=== PATIENT | female | born 1960 | race Caucasian/White ===

== ENCOUNTER 2016-06-29 21:11 | Emergency (ER) | payer OTHER ==
[~2016-06-29] VITALS: Ht 154.9 cm; Wt 93.0 kg
[~2016-06-29 21:11] MED LIST: ATOR20TA65 PO; GLIP10TA95 PO; MTF1000T PO
[2016-06-29 21:24] VITALS: Ht 154.9 cm; Wt 93.0 kg
[2016-06-29] MEDS ORDERED: KETOROLAC 30 MG INJ IV STA (22:56)
[2016-06-29 23:09] LABS: ADD SCAN DIFF NO
[2016-06-29] MEDS ORDERED: ENAL20TA PO (23:09)
[2016-06-29 23:11] LABS: BASOPHILS % 0.4 % (0.0-2.0); EOSINOPHILS # 0.1 10^3/ul (0.0-0.5); EOSINOPHILS % 1.5 % (0.0-7.0); HEMATOCRIT 40.2 % (37.0-47.0); HEMOGLOBIN 13.4 g/dl (12.0-16.0); LYMPHOCYTES # 3.3 10^3/ul (0.8-2.9); LYMPHOCYTES % 40.6 % (15.0-51.0); MEAN CORPUSCULAR HEMOGLOBIN 29.5 pg (29.0-33.0); MEAN CORPUSCULAR HGB CONC 33.3 g/dl (32.0-37.0); MEAN CORPUSCULAR VOLUME 88.4 fl (82.0-101.0); MEAN PLATELET VOLUME 11.1 fl (7.4-10.4); MONOCYTE # 0.5 10^3/ul (0.3-0.9); MONOCYTES % 6.5 % (0.0-11.0); NEUTROPHIL # 4.2 10^3/ul (1.6-7.5); NEUTROPHILS % 50.8 % (39.0-77.0); PLATELET COUNT 224 10^3/UL (140-415); RED BLOOD COUNT 4.55 10^6/ul (4.20-5.40); RED CELL DISTRIBUTION WIDTH 12.5 % (11.5-14.5); WHITE BLOOD COUNT 8.2 10^3/ul (4.8-10.8)
[2016-06-29 23:19] LABS: ALBUMIN 4.2 g/dl (3.3-4.9); POTASSIUM 4.1 mmol/L (3.5-5.1)
[2016-06-29 23:21] LABS: CREATININE 0.62 mg/dl (0.44-1.00)
[2016-06-29 23:22] LABS: ALBUMIN/GLOBULIN RATIO 1.2; BILIRUBIN,INDIRECT 0.3 mg/dl (0-1.1); BILIRUBIN,TOTAL 0.3 mg/dl (0.2-1.3); CALCIUM 9.7 mg/dl (8.4-10.2); TOTAL PROTEIN 7.7 g/dl (6.1-8.1)
--- NOTE | 2016-06-29 23:32 | RADRPT ---
PROCEDURE: US right upper quadrant CLINICAL INDICATION: Abdominal pain TECHNIQUE: Multiple real-time images were acquired of the patient's right upper abdomen utilizing a high resolution transducer. COMPARISON: CT abdomen and pelvis 06/27/2015 FINDINGS: Liver: Increased in size with normal echogenicity and contour no evidence of mass or ductal dilatat ion. Normal directional blood flow is seen within the patent main portal vein. The maximum dimension estimated at 20.6 cm . Gallbladder: Normal. No sonographic Mariano's sign is reported. Common bile duct: Normal; 2.2 mm. There is no evidence for choledocholithiasis. Right Kidney: Normal; maximum length measured at approximately 9.9 cm. Pancreas: Visualized portions are normal. The tail is partially obscured by bowel gas. RPTAT:HJJR IMPRESSION: 1. Normal gallbladder. 2. Hepatomegaly. Physician Debi Date Time Electronically viewed and signed by Physician Debi on 06/29/2016 23:32 /
[2016-06-30 01:02] LABS: URINE BLOOD (Dip) POC Negative (NEGATIVE)
[2016-06-30 01:05] LABS: URINE BLOOD (Dip) POC Negative (NEGATIVE)
[2016-06-30] MEDS ORDERED: IBUP-1542 PO (01:27)
[2016-06-30 01:40] VITALS: BP 160/89; PULSE 70; RESP 18
--- NOTE | 2016-06-30 04:40 | ERA ---
ER Documentation Chief Complaint Date/Time DATE: 06/30/16 Chief Complaint Upper abd pain for a week HPI The patient is a 56-year-old female, presenting to the ER because of upper abdominal pain intermittently for 1 week, 08/08, no aggravating or relieving factor. She has similar symptoms previously. She denies fever, chills, neck pain, chest pain, nausea, vomiting, dysuria, diarrhea. She does not smoke or drink Past medical history: Hypertension, diabetes mellitus, dyslipidemia Past surgical history: Appendectomy ROS All systems reviewed and are negative except as per history of present illness. Medications Home Meds Active Scripts Ibuprofen* (Motrin*) 600 Mg Tab, 600 MG PO Q6H Y for PAIN AND OR ELEVATED TEMP, #30 TAB Prov:DONNELL MAYNARD MD 06/30/16 Reported Medications Enalapril Maleate* (Enalapril Maleate*) 20 Mg Tablet, 20 MG PO DAILY, TAB 06/29/16 Atorvastatin Calcium (Atorvastatin Calcium) 20 Mg Tablet, 20 MG PO DAILY 06/27/15 Metformin* (Glucophage*) 1,000 Mg Tablet, 1000 MG PO BID, TAB 05/17/14 Glipizide* (Glucotrol*) 10 Mg Tablet, 10 MG PO BID 03/12/13 Allergies Allergies: Coded Allergies: azithromycin (Verified Allergy, Unknown, DRY MOUTH,HARD TO SWALLOW, ) sulfamethoxazole (Verified Allergy, Unknown, HARD TO SWALLOW, DRY MOUTH, ) trimethoprim (Verified Allergy, Unknown, HARD TO SWALLOW, DRY MOUTH, ) PMhx/Soc History of Surgery: Yes (HYSTERECTOMY) Anesthesia Reaction: No Hx Neurological Disorder: No Hx Respiratory Disorders: No Hx Cardiac Disorders: Yes (HTN,HIGH CHOLESTEROL) Hx Psychiatric Problems: No Hx Miscellaneous Medical Probl: Yes (DM) Hx Alcohol Use: No Hx Substance Use: No Hx Tobacco Use: No Smoking Status: Never smoker Physical Exam Vitals Vital Signs Date Time Temp Pulse Resp B/P Pulse Ox O2 Delivery O2 Flow Rate FiO2 06/30/16 01:40 70 18 160/89 97 Room Air 06/30/16 01:09 67 20 160/89 100 06/29/16 21:24 98.4 66 16 164/75 99 Physical Exam Const: No acute distress. Head: Atraumatic. Eyes: Normal Conjunctiva. ENT: Normal External Ears, Nose and Mouth. Neck: Full range of motion. No meningismus. Resp: Clear to auscultation bilaterally. Cardio: Regular rate and rhythm, no murmurs. Abd: Soft, non distended, normal bowel sounds, mild epigastric and right upper quadrant tenderness, no rigidity, rebound, CVA tenderness Skin: No petechiae or rashes. Back: No midline or flank tenderness. Ext: No cyanosis, or edema. Neur: Awake and alert. No focal deficit Psych: Normal Mood and Affect. Result Diagram: 06/29/16229906/29/162299 Results 24 hrs Laboratory Tests Test 06/29/16 23:00 06/30/16 01:01 06/30/16 01:04 White Blood Count 8.210^3/ul Red Blood Count 4.5510^6/ul Hemoglobin 13.4g/dl Hematocrit 40.2% Mean Corpuscular Volume 88.4fl Mean Corpuscular Hemoglobin 29.5pg Mean Corpuscular Hemoglobin Concent 33.3g/dl Red Cell Distribution Width 12.5% Platelet Count 05099^3/UL Mean Platelet Volume 11.1fl Neutrophils % 50.8% Lymphocytes % 40.6% Monocytes % 6.5% Eosinophils % 1.5% Basophils % 0.4% Nucleated Red Blood Cells % 0.0/100WBC Neutrophils # 4.210^3/ul Lymphocytes # 3.310^3/ul Monocytes # 0.510^3/ul Eosinophils # 0.110^3/ul Basophils # 0.010^3/ul Nucleated Red Blood Cells # 0.010^3/ul Sodium Level 136mmol/L Potassium Level 4.1mmol/L Chloride Level 98mmol/L Carbon Dioxide Level 31mmol/L Anion Gap 11 Blood Urea Nitrogen 16mg/dl Creatinine 0.62mg/dl Glucose Level 346mg/dl Calcium Level 9.7mg/dl Total Bilirubin 0.3mg/dl Direct Bilirubin 0.00mg/dl Indirect Bilirubin 0.3mg/dl Aspartate Amino Transf (AST/SGOT) 26IU/L Alanine Aminotransferase (ALT/SGPT) 34IU/L Alkaline Phosphatase 156IU/L Total Protein 7.7g/dl Albumin 4.2g/dl Globulin 3.50g/dl Albumin/Globulin Ratio 1.20 Lipase 42U/L Bedside Urine pH (LAB) 6.0 6.0 Bedside Urine Protein (LAB) Negative Negative Bedside Urine Glucose (UA) 0.50% 0.50% Bedside Urine Ketones (LAB) Negative Negative Bedside Urine Blood Negative Negative Bedside Urine Nitrite (LAB) Negative Negative Bedside Urine Leukocyte Esterase (L Negative Negative Current Medications Medications (Trade) Dose Ordered Sig/Dilip Route PRN Reason Start Time Stop Time Status Last Admin Dose Admin Ketorolac Tromethamine (Toradol) 30 mg ONCE STAT IV 06/29/16 22:56 06/29/16 22:58 DC 06/29/16 23:34 Procedures/[place] [id number] Radiology Main Line: [phone] DIAGNOSTIC IMAGING REPORT Patient: SILVIA BUNDY : 1960 Age: 56 Sex: F MR #: [id number] DOS: 06/29/16 2256 Ordering MD: DONNELL MAYNARD MD Location: E/R Room/Bed: PROCEDURE: US right upper quadrant CLINICAL INDICATION: Abdominal pain TECHNIQUE: Multiple real-time images were acquired of the patient's right upper abdomen utilizing a high resolution transducer. COMPARISON: CT abdomen and pelvis 06/27/2015 FINDINGS: Liver: Increased in size with normal echogenicity and contour no evidence of mass or ductal dilatation. Normal directional blood flow is seen within the patent main portal vein. The maximum dimension estimated at 20.6 cm . Gallbladder: Normal. No sonographic Mariano's sign is reported. Common bile duct: Normal; 2.2 mm. There is no evidence for choledocholithiasis. Right Kidney: Normal; maximum length measured at approximately 9.9 cm. Pancreas: Visualized portions are normal. The tail is partially obscured by bowel gas. RPTAT:HJJR IMPRESSION: 1. Normal gallbladder. 2. Hepatomegaly. Physician Debi Date Time Electronically viewed and signed by Physician Debi on 06/29/2016 23:32 JR/ CC: DONNELL MAYNARD MD MEDICAL MAKING DECISION: The patient is a 56-year-old female, presenting with acute abdominal pain of unclear etiology. She was treated with Toradol 30 mg IV for pain with good response. The differential diagnoses considered include but are not limited to cholelithiasis, cholecystitis, cystitis, pancreatitis, hepatitis, gastritis, peptic ulcer disease, gastric ulcer, diverticulitis, cholangitis, choledocholithiasis, partial small bowel obstruction. Departure Diagnosis: Primary Impression: Abdominal pain Condition: Good Patient Instructions: Abdominal Pain Referrals: DOCTOR,NOT ON STAFF (PCP) Additional Instructions: Call your primary care doctor TOMORROW for an appointment during the next 1-2 days.See the doctor sooner or return here if your condition worsens before your appointment time. She was discharged with DONNELL Damon MD Jun 30, 2016 04:40
== END 2016-06-30 01:42 | disposition home or self-care (01) ==
LOC: E/R 21:11
DX: R10.10 Upper abdominal pain, unspecified (principal); I10 Essential (primary) hypertension; E11.9 Type 2 diabetes mellitus without complications; Z79.84 Long term (current) use of oral hypoglycemic drugs
CPT/HCPCS: 36415; 76705; 80053; 81003; 83690; 85025; 96372; J1885; Z7502

== ENCOUNTER 2018-03-10 13:17 | Emergency (ER) | END 2018-03-10 14:51 | disposition home or self-care (01) ==

== ENCOUNTER 2018-05-23 03:20 | Inpatient (IN) | payer OTHER ==
[2018-05-23] VITALS (8 sets, daily range): BP systolic 102–139; BP diastolic 69–88; PULSE 78–103; RESP 17–20; Ht 154.9 cm; Wt 74.1 kg
[~2018-05-23] VITALS: Ht 154.9 cm; Wt 74.1 kg
[~2018-05-23 03:20] MED LIST changes: +BENZ-6 PO; +ENAL20TA PO; +GLIP10TA3 PO; -GLIP10TA95 PO; +IBUP-1542 PO; +LEVO500T48 PO
[2018-05-23] MEDS ORDERED: ASPIRIN 81 MG TAB PO STA (03:43)
[2018-05-23] MEDS ORDERED: NITROGLYCERIN 2% 1 GM OINT PKT TD STA (03:43)
[2018-05-23] MEDS ORDERED: FUROSEMIDE 40 MG INJ IV STA (03:43)
--- NOTE | 2018-05-23 04:06 | ERD ---
ER Documentation Chief Complaint Chief Complaint CHEST PAIN WITH SOB AND COUGH X3DAYS HPI During the patient's encounter translation services were utilized Language: Turkish Source: Family 57-year-old female who presents to the emergency room complaining of several days of shortness of breath, PND, orthopnea, lower extremity swelling. Occasional chest pain here and there. None currently. She denies any fevers chills or cough. The patient has been taking diuretics. She has been following up in the clinics without successful improvement of her symptoms. ROS All systems reviewed and are negative except as per history of present illness. Medications Home Meds Active Scripts Benzonatate* (Tessalon Perle*) 100 Mg Capsule, 100 MG PO Q8H PRN for COUGH, #30 CAP Prov:MARTINA GTZ PA-C 03/10/18 Levofloxacin* (Levaquin*) 500 Mg Tablet, 500 MG PO DAILY for 7 Days, TAB Prov:MARTINA GTZ PA-C 03/10/18 Ibuprofen* (Motrin*) 600 Mg Tab, 600 MG PO Q6H PRN for PAIN AND OR ELEVATED TEMP, #30 TAB Prov:DONNELL MAYNARD MD 06/30/16 Reported Medications Ergocalciferol (Vitamin D2) (VITAMIN D2) 50,000 Unit Capsule, 25901 UNIT PO QSUN, CAP 05/23/18 Lisinopril* (Lisinopril*) 10 Mg Tablet, 10 MG PO BID, #30 TAB 05/23/18 Furosemide* (Furosemide*) 20 Mg Tablet, 20 MG PO BID, #30 TAB 05/23/18 Enalapril Maleate* (Enalapril Maleate*) 20 Mg Tablet, 20 MG PO DAILY, TAB 06/29/16 Atorvastatin Calcium (Atorvastatin Calcium) 20 Mg Tablet, 20 MG PO DAILY 06/27/15 Metformin* (Glucophage*) 1,000 Mg Tablet, 1000 MG PO BID, TAB 05/17/14 Glipizide* (Glucotrol*) 10 Mg Tablet, 10 MG PO BID 03/12/13 Allergies Allergies: Coded Allergies: azithromycin (Unverified Allergy, Unknown, DRY MOUTH,HARD TO SWALLOW, 05/23/18) sulfamethoxazole (Unverified Allergy, Unknown, HARD TO SWALLOW, DRY MOUTH, 05/23/18) trimethoprim (Unverified Allergy, Unknown, HARD TO SWALLOW, DRY MOUTH, 05/23/18) PMhx/Soc History of Surgery: Yes (HYSTERECTOMY) Anesthesia Reaction: No Hx Neurological Disorder: No Hx Respiratory Disorders: No Hx Cardiac Disorders: Yes (HTN,HIGH CHOLESTEROL) Hx Psychiatric Problems: No Hx Miscellaneous Medical Probl: Yes (DM) Hx Alcohol Use: No Hx Substance Use: No Hx Tobacco Use: No FmHx Family History: No diabetes Physical Exam Vitals Vital Signs Date Temp Pulse Resp B/P (MAP) Pulse Ox O2 O2 Flow FiO2 Time Delivery Rate 05/23/18 87 18 115/79 100 Room Air 05:31 (91) 05/23/18 98.5 101 19 134/85 95 03:26 (101) Physical Exam General: Well developed, well nourished, no acute distress Head: Normocephalic, atraumatic. Eyes: Pupils equally reactive, EOM intact ENT: Moist mucous membranes Neck: Supple, no lymphadenopathy Respiratory: Scant rales at the bases bilaterally Cardiovascular: RRR, no murmurs, rubs, or gallops Abdominal: Soft, non-tender, non-distended, no peritoneal signs : Deferred MSK: Bilateral lower extremity pitting edema, no unilateral swelling, 5/5 strength Neurologic: Alert and oriented, moving all extremities, normal speech, no focal weakness, no cerebellar signs Skin: No rash Psych: Normal mood Result Diagram: 05/23/185 05/23/18 0345 Results 24 hrs Laboratory Tests Test 05/23/18 03:45 White Blood Count 6.3 10^3/ul Red Blood Count 4.42 10^6/ul Hemoglobin 12.2 g/dl Hematocrit 38.5 % Mean Corpuscular Volume 87.1 fl Mean Corpuscular Hemoglobin 27.6 pg Mean Corpuscular Hemoglobin Concent 31.7 g/dl Red Cell Distribution Width 14.2 % Platelet Count 192 10^3/UL Mean Platelet Volume 10.9 fl Immature Granulocytes % 0.300 % Neutrophils % 59.8 % Lymphocytes % 30.6 % Monocytes % 7.4 % Eosinophils % 1.3 % Basophils % 0.6 % Nucleated Red Blood Cells % 0.0 /100WBC Immature Granulocytes # 0.020 10^3/ul Neutrophils # 3.8 10^3/ul Lymphocytes # 1.9 10^3/ul Monocytes # 0.5 10^3/ul Eosinophils # 0.1 10^3/ul Basophils # 0.0 10^3/ul Nucleated Red Blood Cells # 0.0 10^3/ul Sodium Level 142 mmol/L Potassium Level 3.9 mmol/L Chloride Level 109 mmol/L Carbon Dioxide Level 26 mmol/L Anion Gap 7 Blood Urea Nitrogen 14 mg/dl Creatinine 0.62 mg/dl Est Glomerular Filtrat Rate mL/min > 60 mL/min Glucose Level 138 mg/dl Calcium Level 9.6 mg/dl Troponin I < 0.012 ng/ml B-Type Natriuretic Peptide 6610 PG/ML Current Medications Medications Dose Sig/Dilip Start Time Status Last (Trade) Ordered Route PRN Stop Time Admin Dose Reason Admin Aspirin 162 mg ONCE STAT 05/23/18 DC 05/23/18 (Aspirin) PO 03:43 03:55 05/23/18 03:44 1 inch ONCE STAT 05/23/18 DC 05/23/18 Nitroglycerin TD 03:43 03:56 05/23/18 03:44 (Nitroglyceri n 2% Oint) Furosemide 40 mg ONCE STAT 05/23/18 DC 05/23/18 (Lasix) IV 03:43 03:55 05/23/18 03:44 Procedures/MDM EKG, MONITORS, & DIAGNOSTIC IMAGING: EKG: I reviewed and interpreted a 12-lead EKG. Rhythm: Normal sinus rhythm ST Changes: No contiguous ST segment elevations T waves: No contiguous T wave inversions Impression: No evidence of acute cardiac ischemia Repeat EKG: EKG: I reviewed and interpreted a 12-lead EKG. Rhythm: Normal sinus rhythm ST Changes: No contiguous ST segment elevations T waves: No contiguous T wave inversions Impression: No evidence of acute cardiac ischemia Chest x-ray: I reviewed and interpreted a 1 view of the chest Mediastinum: No enlargement Cardiac silhouette: cardiomegaly Airspace: Interstitial process bilaterally Bones: No evidence of fracture PROCEDURES: None LAB INTERPRETATION: * Negative troponin, elevated BNP MEDICAL DECISION MAKING: The patient's history, physical exam and clinical presentation is concerning for possible cardiogenic etiology and decompensated heart failure. patient will benefit from diuresis and afterload reduction Based on the patient's clinical exam and history and risk factors, I have a much lower clinical concern for pulmonary embolism, acute aortic dissection, pneumothorax, pneumonia, cardiac tamponade ER COURSE: * Aspirin, nitro, Lasix provided * Chest pain-free. Resting comfortably. No indication for positive pressure ventilation and nitro drip. CONSULTATION: None DISPOSITION PLAN: Telemetry admission for management of chest pain to rule out acute coronary syndrome, serial enzymes, risk stratification and consideration of provocative testing CONSULTATION: Accepting care team and consultations: I discussed the current laboratory data, diagnostic imaging and emergency care provided. Admitting team: Dr. Menard Admitting team indication: Insurance directed Departure Diagnosis: Primary Impression: Chest pain Chest pain type: unspecified Qualified Codes: R07.9 - Chest pain, unspecified Additional Impression: Congestive heart failure Heart failure type: unspecified Heart failure chronicity: acute on chronic Qualified Codes: I50.9 - Heart failure, unspecified Condition: Stable ZAKIA REGALADO MD May 23, 2018 04:06
[2018-05-23] MEDS ORDERED: LISI10TA2 PO (05:07)
[2018-05-23] MEDS ORDERED: FURO20TA3 PO (05:07)
[2018-05-23] MEDS ORDERED: ERGO500013 PO (05:07)
--- NOTE | 2018-05-23 05:53 | HP ---
Date/Time of Note Date/Time of Note DATE: 05/23/18 TIME: 05:52 Assessment/Plan VTE Prophylaxis SCD applied (from Nsg): Yes Pharmacological prophylaxis: NA/contraindicated Pharm contraindication: low risk/ambulating Lines/Catheters IV Catheter Type (from Nrsg): Saline Lock Assessment/Plan Hospital Course This is a 57-year female being admitted to the telemetry floor for observation for: #1 Newly diagnosed diastolic versus systolic heart failure: Patient does have an elevated BNP of 6000, she also has signs of volume overload. At the current time will diurese patient with Lasix 40 mg IV twice daily. Fluid restriction of 1200 cc daily. Low-salt diet. There are 2 LAURA inhibitors on her med [employer] med recon, at the current time I will continue enalapril 20 mg p.o. daily. Continue statin. Beta-patricia initiation once her acute decompensation is more improved. Will consult cardiology . #2 chest pain: Rule out ACS versus newly diagnosed CHF. she does have palpable tenderness palpation as well on the left side. Nonetheless given her symptoms will proceed with trending of cardiac enzymes, first troponin was negative. Will check an echocardiogram. Consult cardiology Dr. Perez. #3 diabetes mellitus: We will check a hemoglobin A1c, insulin sliding scale, will hold home oral medication at the current time #4 hypertension: Resume enalapril, monitor blood pressure #5 hyperlipidemia: Resume statin check lipid panel #6 DVT GI prophylaxis: SCDs, no GI prophylaxis indicated Further treatment strategy will be implemented as per the clinical course Result Diagram: 05/23/18 0345 05/23/18 0345 Results 24hrs Laboratory Tests Test 05/23/18 03:45 White Blood Count 6.3 # Red Blood Count 4.42 Hemoglobin 12.2 Hematocrit 38.5 Mean Corpuscular Volume 87.1 Mean Corpuscular Hemoglobin 27.6 L Mean Corpuscular Hemoglobin Concent 31.7 L Red Cell Distribution Width 14.2 Platelet Count 192 Mean Platelet Volume 10.9 H Immature Granulocytes % 0.300 Neutrophils % 59.8 Lymphocytes % 30.6 Monocytes % 7.4 Eosinophils % 1.3 Basophils % 0.6 Nucleated Red Blood Cells % 0.0 Immature Granulocytes # 0.020 Neutrophils # 3.8 Lymphocytes # 1.9 Monocytes # 0.5 Eosinophils # 0.1 Basophils # 0.0 Nucleated Red Blood Cells # 0.0 Sodium Level 142 Potassium Level 3.9 Chloride Level 109 Carbon Dioxide Level 26 Anion Gap 7 Blood Urea Nitrogen 14 Creatinine 0.62 Est Glomerular Filtrat Rate mL/min > 60 Glucose Level 138 Calcium Level 9.6 Troponin I < 0.012 B-Type Natriuretic Peptide 6610 H HPI/ROS Admit Date/Time Admit Date/Time Hx of Present Illness Chief complaint: Chest pain, shortness of breath and cough times 3 days This is a 57-year-old female who presented to the emergency room complaining of several days of shortness of breath, PND, orthopnea, lower extremity swelling. History was obtained from the patient as well as from the daughter over the phone. Patient has been dealing with lower extremity swelling for approximately 6 months. She has been seen at an outside clinic and has been started on Lasix 20 mg p.o. daily. Despite taking these medications she has continued to have swelling and shortness of breath. Over the last 3 days she started developing left-sided chest pressure as well as a cough especially when she lies down. She does have shortness of breath on exertion as well. She denies any increase in her abdominal girth. Denies any fevers or recent sick contacts. No history of smoking. Allergies: Azithromycin, sulfamethoxazole and trimethoprim Medications: See May Const: As per HPI Eyes : No pain discharge or redness or change in visual acuity ENT: No pain, sore throat, congestion, congestion, dysphagia or discharge Respiratory: As per HPI Cardiovascular: As per HPI GI : no change in appetite, abdominal pain, nausea, vomiting, diarrhea, constipation, or change in the color his stool Genitourinary: No dysuria, hematuria, flank pain , discharge or CVA tenderness Musculoskeletal: As per HPI Skin: No rash, bruising or hives Neuro: No headache, dizziness, syncope, seizure, focal weakness Endocrine: No polyuria, polydipsia, temperature intolerance Psych: No hallucination, depression, anxiety or suicidal ideation PMH/Family/Social Past Medical History DM, HLD, hypertension Medications Current Medications Ondansetron HCl (Zofran Inj) 4 mg ER BRIDGE PRN IV NAUSEA/VOMITING; Start 05/23/18 at 06:00; Stop 05/24/18 at 05:59 Acetaminophen (Tylenol Tab) 650 mg ER BRIDGE PRN PO .MILD PAIN 1-3 OR TEMP; Start 05/23/18 at 06:00; Stop 05/24/18 at 05:59 Coded Allergies: azithromycin (Unverified Allergy, Unknown, DRY MOUTH,HARD TO SWALLOW, 05/23/18) sulfamethoxazole (Unverified Allergy, Unknown, HARD TO SWALLOW, DRY MOUTH, 05/23/18) trimethoprim (Unverified Allergy, Unknown, HARD TO SWALLOW, DRY MOUTH, 05/23/18) Past Surgical History Appendectomy, hysterectomy? Family History Significant Family History: no pertinent family hx Social History Alcohol Use: none Smoking Status: Never smoker Drug Use: none Exam/Review of Systems Vital Signs Vitals Vital Signs Date Temp Pulse Resp B/P (MAP) Pulse Ox O2 O2 Flow FiO2 Time Delivery Rate 05/23/18 87 18 115/79 100 Room Air 05:31 (91) 05/23/18 98.5 03:26 Exam Exam General: Patient is currently lying in bed, has an occasional nonproductive cough HEENT: Atraumatic, normocephalic. The pupils are equal, round and reactive. Extraocular motor are intact Neck: Supple with full range of motion. No rigidity or meningismus Chest: Nontender Lungs: coarse breath sounds bilaterally, mild Expiratory wheezing at the bases, nonproductive cough Heart: Normal S1-S2, Regular rhythm and rate. Positive JVD Abdomen: Obese, soft , nontender, nondistended , bowel sounds are present. No guarding no rebound tenderness , No masses or organomegaly. No costovertebral temporal angle mass Extremities: 2+ pitting edema up to the level of the bilateral upper shins Neurologic: Normal mental status, speech normal, cranial nerves II through XII are intact, motor and sensory are intact, Additional Comments EKG: Rhythm: Normal sinus rhythm ST Changes: No contiguous ST segment elevations T waves: No contiguous T wave inversions No ST or T wave abnormalities concerning for acute ischemia PROCEDURE: CHEST - 1 VIEW CLINICAL INDICATION: 57-year-old female with chest pain. TECHNIQUE: A single frontal AP portable view of the chest was performed. The images were reviewed on a PACS workstation. COMPARISON: CR CHEST 06/27/2015; CR CHEST 03/12/2013 FINDINGS: The cardiomediastinal silhouette is moderately enlarged. There is [id number] pulmonary vascular congestion/volume overload. There is no evidence for focal consolidation. There is no evidence for pneumothorax. The osseous structures are intact. IMPRESSION: 1. Moderate cardiomegaly. 2. [id number] pulmonary vascular congestion/volume overload. .Jd Martinez MD, MD Date Time Electronically viewed and signed by .Jd Martinez MD, on 05/23/2018 04:55 .M/ CC: ZAKIA REGALADO MD [id number] LESIA HUGHES May 23, 2018 05:53
[2018-05-23] MEDS ORDERED: ACETAMINOPHEN 325 MG TAB PO PRN (06:00)
[2018-05-23] MEDS ORDERED: morphine 2 MG INJ IV PRN (06:00)
[2018-05-23] MEDS ORDERED: ONDANSETRON 4 MG INJ IV PRN ×2 (06:00)
[2018-05-23] MEDS ORDERED: NACL 0.9% 3 ML SYG IV SCH (06:00)
[2018-05-23] MEDS ORDERED: NITROGLYCERIN (SL) 0.4 MG TAB SL PRN (06:00)
[2018-05-23] MEDS: ENALAPRIL 20 MG TAB PO SCH (08:49)
[2018-05-23] MEDS: ACETAMINOPHEN 325 MG TAB PO PRN (08:55)
--- NOTE | 2018-05-23 10:13 | CONS ---
Assessment/Plan Assessment/Plan Hospital Course (Demo Recall) Acute on chronic systolic heart failure: grossly decompensated on exam Cardiomyopathy: EF 20-25%. In setting of diabetes and chest pain, will assume ischemic until proven otherwise Chest pain: Possible CAD vs from elevated end diastolic pressure from d ecompensated CHF. Cath when euvolemic DM -continue lasix 40mg IV BID -ASA, lipitor -enalapril 20mg -coreg when euvolemic -possible cardiac cath Saturday if able to lay flat and renal function remains normal Consultation Date/Type/Reason Admit Date/Time Date of Consultation: May 23, 2018 Type of Consult Cardiology Reason for Consultation CHF, chest pain Date/Time of Note DATE: 05/23/18 TIME: 10:06 Hx of Present Illness 57 yo F with DM (8-10 yrs), who presented with dyspnea,orthopnea, PND, edema, chest pain, and is being treated for CHF. Per her daughter the pt has had dyspnea for 1 year and workup has been unrevealing. She started to have leg edema one month ago and was prescribed lasix. She was apparently seen by a platform beater one week ago but no echo was done. She has exertional chest pressure as well. Currently feels better. per HPI Past Medical History per HPI Home Meds Active Scripts Benzonatate* (Tessalon Perle*) 100 Mg Capsule, 100 MG PO Q8H PRN for COUGH, #30 CAP Prov:MARTINA GTZ PA-C 03/10/18 Ibuprofen* (Motrin*) 600 Mg Tab, 600 MG PO Q6H PRN for PAIN AND OR ELEVATED TEMP, #30 TAB Prov:DONNELL MAYNARD MD 06/30/16 Reported Medications Ergocalciferol (Vitamin D2) (VITAMIN D2) 50,000 Unit Capsule, 65766 UNIT PO QSU N, CAP 05/23/18 Lisinopril* (Lisinopril*) 10 Mg Tablet, 10 MG PO BID, #30 TAB 05/23/18 Furosemide* (Furosemide*) 20 Mg Tablet, 20 MG PO BID, #30 TAB 05/23/18 Enalapril Maleate* (Enalapril Maleate*) 20 Mg Tablet, 20 MG PO DAILY, TAB 06/29/16 Atorvastatin Calcium (Atorvastatin Calcium) 20 Mg Tablet, 20 MG PO DAILY 06/27/15 Metformin* (Glucophage*) 1,000 Mg Tablet, 1000 MG PO BID, TAB 05/17/14 Glipizide* (Glucotrol*) 10 Mg Tablet, 10 MG PO BID 03/12/13 Discontinued Scripts Levofloxacin* (Levaquin*) 500 Mg Tablet, 500 MG PO DAILY for 7 Days, TAB Prov:MARTINA GTZ PA-C 03/10/18 Medications Current Medications Atorvastatin Calcium (Lipitor) 20 mg DAILY@2100 PO ; Start 05/23/18 at 21:00 IV Flush (NS 3 ml) 3 ml PER PROTOCOL IV ; Start 05/23/18 at 06:00 Ondansetron HCl (Zofran Inj) 4 mg Q6H PRN IV NAUSEA/VOMITING; Start 05/23/18 at 06:00 Nitroglycerin (Nitroglycerin (Sl Tab) 0.4 Mg) 1 tab Q5M PRN SL .CHEST PAIN; Start 05/23/18 at 06:00 Acetaminophen (Tylenol Tab) 650 mg Q6H PRN PO .PAIN 1-3 OR TEMP Last administered on 05/23/18at 08:55; Admin Dose 650 MG; Start 05/23/18 at 06:00 Morphine Sulfate (morphine) 1 mg Q4H PRN IV .PAIN 7-10; Start 05/23/18 at 06:00 Furosemide (Lasix) 40 mg BID DIURETICS IV ; Start 05/23/18 at 13:00 Enalapril Maleate (Vasotec) 20 mg DAILY PO Last administered on 05/23/18at 08:49; Admin Dose 20 MG; Start 05/23/18 at 09:00 Aspirin (Aspirin) 81 mg DAILY PO ; Start 05/24/18 at 09:00 Allergies: Coded Allergies: azithromycin (Unverified Allergy, Unknown, DRY MOUTH,HARD TO SWALLOW, 05/23/18) sulfamethoxazole (Unverified Allergy, Unknown, HARD TO SWALLOW, DRY MOUTH, 05/23/18) trimethoprim (Unverified Allergy, Unknown, HARD TO SWALLOW, DRY MOUTH, 05/23/18) Social History Alcohol Use: none Smoking Status: Never smoker Drug Use: none Exam/Review of Systems Exam Vitals Vital Signs Date Temp Pulse Resp B/P (MAP) Pulse Ox O2 O2 Flow FiO2 Time Delivery Rate 05/23/18 103 09:01 05/23/18 97.6 17 139/88 97 07:11 (105) 05/23/18 Room Air 06:37 Constitutional: alert, oriented Psych: no complaints, nl mood/affect Head: normocephalic, atraumatic Neck: supple, jvd (angle of jaw ) Respiratory: crackles/rales; No clear to auscultation Cardiovascular: regular rate and rhythm, edema (2-3+); No systolic murmur Gastrointestinal: soft, non-tender; No distended Extremities: normal pulses Neurological: nl mental status, nl speech Additional Comments EKG: sinus tachycardia, lateral TW changes Results Result Diagram: 05/23/18 0345 05/23/18 0345 Results 24hrs Laboratory Tests Test 05/23/18 03:45 White Blood Count 6.3 # Red Blood Count 4.42 Hemoglobin 12.2 Hematocrit 38.5 Mean Corpuscular Volume 87.1 Mean Corpuscular Hemoglobin 27.6 L Mean Corpuscular Hemoglobin Concent 31.7 L Red Cell Distribution Width 14.2 Platelet Count 192 Mean Platelet Volume 10.9 H Immature Granulocytes % 0.300 Neutrophils % 59.8 Lymphocytes % 30.6 Monocytes % 7.4 Eosinophils % 1.3 Basophils % 0.6 Nucleated Red Blood Cells % 0.0 Immature Granulocytes # 0.020 Neutrophils # 3.8 Lymphocytes # 1.9 Monocytes # 0.5 Eosinophils # 0.1 Basophils # 0.0 Nucleated Red Blood Cells # 0.0 Sodium Level 142 Potassium Level 3.9 Chloride Level 109 Carbon Dioxide Level 26 Anion Gap 7 Blood Urea Nitrogen 14 Creatinine 0.62 Est Glomerular Filtrat Rate mL/min > 60 Glucose Level 138 Calcium Level 9.6 Troponin I < 0.012 B-Type Natriuretic Peptide 6610 H Medications Medication Current Medications Atorvastatin Calcium (Lipitor) 20 mg DAILY@2100 PO ; Start 05/23/18 at 21:00 IV Flush (NS 3 ml) 3 ml PER PROTOCOL IV ; Start 05/23/18 at 06:00 Ondansetron HCl (Zofran Inj) 4 mg Q6H PRN IV NAUSEA/VOMITING; Start 05/23/18 at 06:00 Nitroglycerin (Nitroglycerin (Sl Tab) 0.4 Mg) 1 tab Q5M PRN SL .CHEST PAIN; Start 05/23/18 at 06:00 Acetaminophen (Tylenol Tab) 650 mg Q6H PRN PO .PAIN 1-3 OR TEMP Last administered on 05/23/18at 08:55; Admin Dose 650 MG; Start 05/23/18 at 06:00 Morphine Sulfate (morphine) 1 mg Q4H PRN IV .PAIN 7-10; Start 05/23/18 at 06:00 Furosemide (Lasix) 40 mg BID DIURETICS IV ; Start 05/23/18 at 13:00 Enalapril Maleate (Vasotec) 20 mg DAILY PO Last administered on 05/23/18at 08:49; Admin Dose 20 MG; Start 05/23/18 at 09:00 Aspirin (Aspirin) 81 mg DAILY PO ; Start 05/24/18 at 09:00 GUERA ESPINAL May 23, 2018 10:13
[2018-05-23] MEDS ORDERED: POTASSIUM CHLORIDE 20 MEQ POWDER FOR ORAL SOLN PO ONE (10:30)
--- NOTE | 2018-05-23 10:51 | PN ---
Date/Time of Note Date/Time of Note DATE: 05/23/18 TIME: 10:50 Assessment/Plan VTE Prophylaxis Risk score (from Ns)>0 risk: 3 SCD applied (from Ns): Yes Pharmacological prophylaxis: LMWH Lines/Catheters [facility] Saline Lock Assessment/Plan Hospital Course SUBJECTIVE: Denies any chest pain. OBJECTIVE: Physical Exam General: Obese, 57 year-old female lying in bed in no apparent distress. HEENT: Normocephalic, atraumatic. Eyes: Anicteric sclerae, conjunctivae clear. ENT: Nasal septum midline, oral mucosa moist. Neck supple, JVD noticed. Respiratory: Bilaterally diminished breath sounds. No use of accessory muscles of respiration. Bibasilar rales. Cardiovascular: S1, S2 heard. Regular rate and rhythm. Abdomen: Soft, nontender, and nondistended. Bowel sounds positive in all 4 quadrants. Genitourinary: Deferred. Extremities: No cyanosis, no clubbing. Bilateral lower extremity 2+ pitting edema. Peripheral pulses palpable. Neurologic: Cranial nerves II through XII grossly intact. The patient is awake, alert, and oriented. Skin: Normal skin turgor. No skin rashes. Labs & Vitals per chart ASSESSMENT & PLAN 57-year-old female with comorbidities including hypertension, dyslipidemia, diabetes mellitus type 2, and obesity who came to the emergency room with chief complaint of chest pain, shortness of breath, and cough. The patient's chest x- ray showed cardiomegaly and evidence of congestive heart failure. The patient was admitted to inpatient setting for further treatment and evaluation. 1. Chest pain. -To rule out ACS. -Continue to monitor serial troponins. -Cardiology following. -Continue aspirin. 2. CHF exacerbation, systolic dysfunction. -Continue diuretic therapy. 3. Cardiomyopathy. -Ejection fraction of 20-25% as per 2D echocardiogram. -Continue LAURA inhibitors. -Initiation of beta-blockers will be deferred to cardiology. 4. Dyslipidemia. -Continue Lipitor. 5. Diabetes mellitus type 2. -Hemoglobin A1c 7.2. -Continue sliding scale insulin along with basal insulin. 6. Hypertension. -Continue antihypertensives. 7. Fluids, electrolytes, and nutrition. -Carbohydrate controlled diet. 8. DVT prophylaxis. -Subcutaneous Lovenox. 9. Plan. -Continue telemetry monitoring. -Continue diuretic therapy. -Tentative plan for left heart catheterization on 05/26/2018. Plan of care was explained to the patient's family, who was at the bedside. The patient was seen in collaboration with Dr. Payton. Result Diagram: 05/23/18 0345 05/23/18 0345 Results 24hrs Laboratory Tests Test 05/23/18 03:45 05/23/18 09:19 White Blood Count 6.3 # Red Blood Count 4.42 Hemoglobin 12.2 Hematocrit 38.5 Mean Corpuscular Volume 87.1 Mean Corpuscular Hemoglobin 27.6 L Mean Corpuscular Hemoglobin Concent 31.7 L Red Cell Distribution Width 14.2 Platelet Count 192 Mean Platelet Volume 10.9 H Immature Granulocytes % 0.300 Neutrophils % 59.8 Lymphocytes % 30.6 Monocytes % 7.4 Eosinophils % 1.3 Basophils % 0.6 Nucleated Red Blood Cells % 0.0 Immature Granulocytes # 0.020 Neutrophils # 3.8 Lymphocytes # 1.9 Monocytes # 0.5 Eosinophils # 0.1 Basophils # 0.0 Nucleated Red Blood Cells # 0.0 Sodium Level 142 Potassium Level 3.9 Chloride Level 109 Carbon Dioxide Level 26 Anion Gap 7 Blood Urea Nitrogen 14 Creatinine 0.62 Est Glomerular Filtrat Rate mL/min > 60 Glucose Level 138 Calcium Level 9.6 Troponin I < 0.012 < 0.012 B-Type Natriuretic Peptide 6610 H Hemoglobin A1c 7.2 H Magnesium Level 1.7 Creatine Kinase 71 Creatine Kinase Index 1.8 Creatinine Kinase MB (Mass) 1.31 Triglycerides Level 89 Cholesterol Level 107 LDL Cholesterol, Calculated 44 HDL Cholesterol 45 Cholesterol/HDL Ratio 2.3 Exam/Review of Systems Exam Vitals Vital Signs Date Temp Pulse Resp B/P (MAP) Pulse Ox O2 O2 Flow FiO2 Time Delivery Rate 05/23/18 103 09:01 05/23/18 97.6 17 139/88 97 07:11 (105) 05/23/18 Room Air 06:37 Results Results 24hrs Laboratory Tests Test 05/23/18 03:45 05/23/18 09:19 White Blood Count 6.3 # Red Blood Count 4.42 Hemoglobin 12.2 Hematocrit 38.5 Mean Corpuscular Volume 87.1 Mean Corpuscular Hemoglobin 27.6 L Mean Corpuscular Hemoglobin Concent 31.7 L Red Cell Distribution Width 14.2 Platelet Count 192 Mean Platelet Volume 10.9 H Immature Granulocytes % 0.300 Neutrophils % 59.8 Lymphocytes % 30.6 Monocytes % 7.4 Eosinophils % 1.3 Basophils % 0.6 Nucleated Red Blood Cells % 0.0 Immature Granulocytes # 0.020 Neutrophils # 3.8 Lymphocytes # 1.9 Monocytes # 0.5 Eosinophils # 0.1 Basophils # 0.0 Nucleated Red Blood Cells # 0.0 Sodium Level 142 Potassium Level 3.9 Chloride Level 109 Carbon Dioxide Level 26 Anion Gap 7 Blood Urea Nitrogen 14 Creatinine 0.62 Est Glomerular Filtrat Rate mL/min > 60 Glucose Level 138 Calcium Level 9.6 Troponin I < 0.012 < 0.012 B-Type Natriuretic Peptide 6610 H Hemoglobin A1c 7.2 H Magnesium Level 1.7 Creatine Kinase 71 Creatine Kinase Index 1.8 Creatinine Kinase MB (Mass) 1.31 Triglycerides Level 89 Cholesterol Level 107 LDL Cholesterol, Calculated 44 HDL Cholesterol 45 Cholesterol/HDL Ratio 2.3 Medications Medication Current Medications IV Flush (NS 3 ml) 3 ml PER PROTOCOL IV ; Start 05/23/18 at 06:00 Ondansetron HCl (Zofran Inj) 4 mg Q6H PRN IV NAUSEA/VOMITING; Start 05/23/18 at 06:00 Nitroglycerin (Nitroglycerin (Sl Tab) 0.4 Mg) 1 tab Q5M PRN SL .CHEST PAIN; Start 05/23/18 at 06:00 Acetaminophen (Tylenol Tab) 650 mg Q6H PRN PO .PAIN 1-3 OR TEMP Last administered on 05/23/18at 08:55; Admin Dose 650 MG; Start 05/23/18 at 06:00 Morphine Sulfate (morphine) 1 mg Q4H PRN IV .PAIN 7-10; Start 05/23/18 at 06:00 Furosemide (Lasix) 40 mg BID DIURETICS IV ; Start 05/23/18 at 13:00 Enalapril Maleate (Vasotec) 20 mg DAILY PO Last administered on 05/23/18at 08:49; Admin Dose 20 MG; Start 05/23/18 at 09:00 Aspirin (Aspirin) 81 mg DAILY PO ; Start 05/24/18 at 09:00 Atorvastatin Calcium (Lipitor) 40 mg DAILY@21 PO ; Start 05/23/18 at 21:00 Magnesium Sulfate 3 gm/Dextrose 106 ml @ 35.333 mls/ hr ONCE ONCE IVPB ; Start 05/23/18 at 12:00; Stop 05/23/18 at 14:59 SCOTT SANTOS NP May 23, 2018 10:51
[2018-05-23] MEDS ORDERED: GLUCOSE GEL 15 GRAM TUBE PO PRN ×2 (11:00)
[2018-05-23] MEDS ORDERED: DEXTROSE 50% 50 ML SYRINGE IV PRN ×2 (11:00)
[2018-05-23] MEDS ORDERED: GLUCAGON 1 MG INJ IM PRN (11:00)
[2018-05-23] MEDS ORDERED: GLUCOSE GEL 15 GRAM TUBE BUCCAL PRN (11:00)
[2018-05-23] MEDS: ENOXAPARIN 40 MG/0.4 ML SYG SC SCH (11:55)
[2018-05-23] MEDS ORDERED: MAGNESIUM SULFATE 3 GM in DEXTROSE 5% 100 ML IVPB ONE (12:00)
--- NOTE | 2018-05-23 12:10 | RADRPT ---
Echocardiogram Report Patient Name: SILVIA CAVAZOSPatient ID: [id number] : 1960 (58y )Study Date: 05/23/2018 9:36:17 AM Gender: FAccession #: [id number] Tech: Location: [facility] Ref.Physician: LESIA HUGHES Height(Cm): BSA: Weight(Kg): Quality: GoodAccount #: Procedures: Echocardiographic Report: Transthoracic echocardiogram with complete 2D, M-Mode, and doppler examination. Indications: Chest Pain, and Congestive Heart Failure. Measurements: 2D/M Mode Doppler Measurement Value Normal Range Measurement Value Normal Range LVIDd 2D 5.5 [ 3.8 - 5.2 ] cm AV Mean Rudy 0.8 [ 70.0 - 90.0 ] cm/sec LVIDs 2D 4.7 [ 2.2 - 3.5 ] cm AV Mean PG 3.0 [ 2.0 - 4.0 ] mmHg LVPWd 2D 1.0 [ 0.6 - 0.9 ] cm AV Peak Rudy 1.1 [ 100.0 - 170.0 ] cm/sec IVSd 2D 1.2 [ 0.6 - 0.9 ] cm AV Peak PG 4.0 [ 2.0 - 9.0 ] mmHg AoR Diam 2D 2.7 [ 2.3 - 3.1 ] cm AV VTI 17.3 cm EDV 2D 145.0 [ 46.0 - 106.0 ] ml LVOT Mean Rudy 0.5 [ 60.0 - 80.0 ] cm/sec ESV 2D 101.0 [ 14.0 - 42.0 ] ml LVOT Mean PG 1.0 [ 1.0 - 3.0 ] mmHg EF 2D 30.3 [ 54.0 - 74.0 ] percent LVOT Peak Rudy 0.8 [ 70.0 - 110.0 ] cm/sec LA Dimen 2D 4.8 [ 2.7 - 3.8 ] cm LVOT Peak PG 3.0 [ 2.0 - 6.0 ] mmHg LVOT VTI 11.9 [ 20.0 - 30.0 ] cm TR Peak Rudy 279.0 [ 100.0 - 280.0 ] cm/sec TR Peak PG 31.0 mmHg RVSP 46.0 [ 10.0 - 36.0 ] mmHg RA Pressure 15.0 mmHg Findings: Left Ventricle: Normal left ventricular wall thickness. Mild enlargement of left ventricle cavity. Severe global left ventricular systolic dysfunction. Ejection fraction is visually estimated at 20-25 %. Tissue Doppler/Mitral Doppler indices are consistent with restrictive physiology with markedly elevated left atrial pressure (Stage III-IV diastolic dysfunction). Right Ventricle: Moderate enlargement of right ventricle. Mild right ventricular hypokinesis. Left Atrium: There is severe enlargement of left atrium. Right Atrium: There is severe enlargement of right atrium. RA Pressure= 15. Mitral Valve: Normal appearance of the mitral valve. Mild to moderate mitral valve regurgitation. Aortic Valve: Normal appearance of the aortic valve. No significant aortic stenosis or insufficiency. Tricuspid Valve: Normal appearance of the tricuspid valve. Estimated peak PA systolic pressure 46 mmHg. There is mild tricuspid regurgitation. Pulmonic Valve: Normal pulmonic valve appearance. There is trace pulmonic regurgitation. Pericardium: Normal pericardium with no significant pericardial effusion. Pleural effusion seen. Aorta: Normal aortic root. IVC: Dilated IVC without respiratory collapse consistent with elevated right atrial pressure. Conclusions: Normal left ventricular wall thickness. Mild enlargement of left ventricle cavity. Severe global left ventricular systolic dysfunction. Ejection fraction is visually estimated at 20-25 %. Tissue Doppler/Mitral Doppler indices are consistent with restrictive physiology with markedly elevated left atrial pressure (Stage III-IV diastolic dysfunction). Moderate enlargement of right ventricle. Mild right ventricular hypokinesis. Mild to moderate mitral valve regurgitation. There is severe enlargement of left atrium. There is severe enlargement of right atrium. RA Pressure= 15. Estimated peak PA systolic pressure 46 mmHg. Electronically Signed By: Jono Edwards 2018-05-23 12:09:54 PST
[2018-05-23] MEDS: INSULIN ASPART [NOVOLOG] 3 ML PEN SC SCH ×5 (12:24→20:39)
[2018-05-23] MEDS: FUROSEMIDE 40 MG INJ IV SCH ×2 (12:32→18:00)
[2018-05-23] MEDS: ATORVASTATIN 40 MG TAB PO SCH (20:39)
[2018-05-23] MEDS ORDERED: ATORVASTATIN 20 MG TAB PO SCH (21:00)
[2018-05-23] MEDS ORDERED: SODIUM POLYSTYRENE 15 GM KIT (POWDER + SORBITOL) PO SCH (22:30)
[2018-05-24] VITALS (13 sets, daily range): BP systolic 110–126; BP diastolic 67–78; PULSE 83–150; RESP 18–20
[2018-05-24] MEDS: ACETAMINOPHEN 325 MG TAB PO PRN (00:47)
[2018-05-24] MEDS: ACCUCHECK AT 2AM (Patients on SS coverage) XX SCH (02:00)
[2018-05-24] MEDS: FUROSEMIDE 40 MG INJ IV SCH ×2 (06:10→17:27)
[2018-05-24] MEDS: INSULIN ASPART [NOVOLOG] 3 ML PEN SC SCH ×7 (08:16→20:36)
[2018-05-24] MEDS: ENALAPRIL 20 MG TAB PO SCH (08:57)
[2018-05-24] MEDS: ASPIRIN 81 MG TAB PO SCH (08:57)
[2018-05-24] MEDS: ENOXAPARIN 40 MG/0.4 ML SYG SC SCH (09:05)
--- NOTE | 2018-05-24 09:50 | PN ---
Date/Time of Note Date/Time of Note DATE: 05/24/18 TIME: 09:48 Assessment/Plan VTE Prophylaxis Risk score (from Ns)>0 risk: 5 SCD applied (from [facility]): No SCD contraindicated: other Pharmacological prophylaxis: LMWH Lines/Catheters IV Catheter Type (from [facility]): Saline Lock Assessment/Plan Hospital Course SUBJECTIVE: Denies any chest pain. OBJECTIVE: Physical Exam General: Obese, 57 year-old female lying in bed in no apparent distress. HEENT: Normocephalic, atraumatic. Eyes: Anicteric sclerae, conjunctivae clear. ENT: Nasal septum midline, oral mucosa moist. Neck supple, JVD noticed. Respiratory: Bilaterally diminished breath sounds. No use of accessory muscles of respiration. Bibasilar rales. Cardiovascular: S1, S2 heard. Regular rate and rhythm. Abdomen: Soft, nontender, and nondistended. Bowel sounds positive in all 4 quadrants. Genitourinary: Deferred. Extremities: No cyanosis, no clubbing. Bilateral lower extremity 2+ pitting edema. Peripheral pulses palpable. Neurologic: Cranial nerves II through XII grossly intact. The patient is awake, alert, and oriented. Skin: Normal skin turgor. No skin rashes. Labs & Vitals per chart ASSESSMENT & PLAN 57-year-old female with comorbidities including hypertension, dyslipidemia, diabetes mellitus type 2, and obesity who came to the emergency room with chief complaint of chest pain, shortness of breath, and cough. The patient's chest x- ray showed cardiomegaly and evidence of congestive heart failure. The patient was admitted to inpatient setting for further treatment and evaluation. 1. Chest pain. -Negative serial troponins. -Cardiology following. -Continue aspirin. 2. CHF exacerbation, systolic dysfunction. -Continue diuretic therapy. 3. Cardiomyopathy. -Ejection fraction of 20-25% as per 2D echocardiogram. -Continue LAURA inhibitors. -Initiation of beta-blockers will be deferred to cardiology. 4. Dyslipidemia. -Continue Lipitor. 5. Diabetes mellitus type 2. -Hemoglobin A1c 7.2. -Continue sliding scale insulin along with basal insulin and pre-meal insulin. 6. Hypertension. -Continue antihypertensives. 7. Pulmonary hypertension. -PA systolic pressure 46 mmHg. -Most probably secondary to left heart disease. 8. Fluids, electrolytes, and nutrition. -Carbohydrate controlled diet. 9. DVT prophylaxis. -Subcutaneous Lovenox. 10. Plan. -Continue telemetry monitoring. -Continue diuretic therapy. -Tentative plan for left heart catheterization on 05/26/2018. The patient was seen in collaboration with Dr. Payton. Result Diagram: 05/24/18 0458 05/24/18 0458 Results 24hrs Laboratory Tests Test 05/23/18 11:49 05/23/18 14:43 05/23/18 17:16 05/23/18 20:37 Bedside Glucose 198 153 176 Creatine Kinase 70 Creatine Kinase 1.7 Index Creatinine Kinase MB 1.21 (Mass) Troponin I < 0.012 Test 05/23/18 23:34 05/24/18 04:58 05/24/18 08:03 Sodium Level 141 141 Potassium Level 4.0 4.5 Chloride Level 103 103 Carbon Dioxide Level 31 30 Anion Gap 7 8 Blood Urea Nitrogen 17 16 Creatinine 0.71 0.69 Est Glomerular > 60 > 60 Filtrat Rate mL/min Glucose Level 170 168 Calcium Level 9.6 9.7 Magnesium Level 2.3 2.1 White Blood Count 5.2 Red Blood Count 4.24 Hemoglobin 11.7 L Hematocrit 37.2 Mean Corpuscular 87.7 Volume Mean Corpuscular 27.6 L Hemoglobin Mean Corpuscular 31.5 L Hemoglobin Concent Red Cell 14.1 Distribution Width Platelet Count 183 Mean Platelet Volume 10.8 H Immature 0.200 Granulocytes % Neutrophils % 52.8 Lymphocytes % 36.5 Monocytes % 8.4 Eosinophils % 1.5 Basophils % 0.6 Nucleated Red Blood 0.0 Cells % Immature 0.010 Granulocytes # Neutrophils # 2.8 Lymphocytes # 1.9 Monocytes # 0.4 Eosinophils # 0.1 Basophils # 0.0 Nucleated Red Blood 0.0 Cells # Phosphorus Level 4.7 B-Type Natriuretic 4400 H Peptide Bedside Glucose 162 Exam/Review of Systems Exam Vitals Vital Signs Date Temp Pulse Resp B/P (MAP) Pulse Ox O2 O2 Flow FiO2 Time Delivery Rate 05/24/18 98.3 84 18 110/69 97 Room Air 08:00 (83) Intake and Output 05/23/18 05/23/18 05/24/18 1515:00 23:00 07:00 IntakeIntake Total 620 ml 500 ml OutputOutput Total 1200 ml BalanceBalance 620 ml -700 ml Results Results 24hrs Laboratory Tests Test 05/23/18 11:49 05/23/18 14:43 05/23/18 17:16 05/23/18 20:37 Bedside Glucose 198 153 176 Creatine Kinase 70 Creatine Kinase 1.7 Index Creatinine Kinase MB 1.21 (Mass) Troponin I < 0.012 Test 05/23/18 23:34 05/24/18 04:58 05/24/18 08:03 Sodium Level 141 141 Potassium Level 4.0 4.5 Chloride Level 103 103 Carbon Dioxide Level 31 30 Anion Gap 7 8 Blood Urea Nitrogen 17 16 Creatinine 0.71 0.69 Est Glomerular > 60 > 60 Filtrat Rate mL/min Glucose Level 170 168 Calcium Level 9.6 9.7 Magnesium Level 2.3 2.1 White Blood Count 5.2 Red Blood Count 4.24 Hemoglobin 11.7 L Hematocrit 37.2 Mean Corpuscular 87.7 Volume Mean Corpuscular 27.6 L Hemoglobin Mean Corpuscular 31.5 L Hemoglobin Concent Red Cell 14.1 Distribution Width Platelet Count 183 Mean Platelet Volume 10.8 H Immature 0.200 Granulocytes % Neutrophils % 52.8 Lymphocytes % 36.5 Monocytes % 8.4 Eosinophils % 1.5 Basophils % 0.6 Nucleated Red Blood 0.0 Cells % Immature 0.010 Granulocytes # Neutrophils # 2.8 Lymphocytes # 1.9 Monocytes # 0.4 Eosinophils # 0.1 Basophils # 0.0 Nucleated Red Blood 0.0 Cells # Phosphorus Level 4.7 B-Type Natriuretic 4400 H Peptide Bedside Glucose 162 Medications Medication Current Medications IV Flush (NS 3 ml) 3 ml PER PROTOCOL IV ; Start 05/23/18 at 06:00 Ondansetron HCl (Zofran Inj) 4 mg Q6H PRN IV NAUSEA/VOMITING; Start 05/23/18 at 06:00 Nitroglycerin (Nitroglycerin (Sl Tab) 0.4 Mg) 1 tab Q5M PRN SL .CHEST PAIN; Start 05/23/18 at 06:00 Acetaminophen (Tylenol Tab) 650 mg Q6H PRN PO .PAIN 1-3 OR TEMP Last administered on 05/24/18at 00:47; Admin Dose 650 MG; Start 05/23/18 at 06:00 Morphine Sulfate (morphine) 1 mg Q4H PRN IV .PAIN 7-10; Start 05/23/18 at 06:00 Furosemide (Lasix) 40 mg BID DIURETICS IV Last administered on 05/24/18 06:10; Admin Dose 40 MG; Start 05/23/18 at 13:00 Enalapril Maleate (Vasotec) 20 mg DAILY PO Last administered on 05/24/18 08:57; Admin Dose 20 MG; Start 05/23/18 at 09:00 Aspirin (Aspirin) 81 mg DAILY PO Last administered on 05/24/18 08:57; Admin Dose 81 MG; Start 05/24/18 at 09:00 Atorvastatin Calcium (Lipitor) 40 mg DAILY@21 PO Last administered on 05/23/18at 20:39; Admin Dose 40 MG; Start 05/23/18 at 21:00 Enoxaparin Sodium (Lovenox) 40 mg DAILY SC Last administered on 05/24/18 09:05; Admin Dose 40 MG; Start 05/23/18 at 11:00 Insulin Aspart (Novolog Insulin Pen) 4 unit WITH MEALS SC Last administered on 05/24/18 08:16; Admin Dose 4 UNIT; Start 05/23/18 at 12:00 Insulin Aspart (Novolog Insulin Pen) NOVOLOG *MILD* ALGORITHM WITH MEALS BEDTIME SC Last administered on 05/24/18 08:16; Admin Dose 1 UNIT; Start 05/23/18 at 12:00 Miscellaneous Information 1 ea NOTE XX ; Start 05/23/18 at 11:00 Glucose (Glutose) 15 gm Q15M PRN PO DECREASED GLUCOSE; Start 05/23/18 at 11:00 Glucose (Glutose) 22.5 gm Q15M PRN PO DECREASED GLUCOSE; Start 05/23/18 at 11:00 Dextrose (D50w Syringe) 25 ml Q15M PRN IV DECREASED GLUCOSE; Start 05/23/18 at 11:00 Dextrose (D50w Syringe) 50 ml Q15M PRN IV DECREASED GLUCOSE; Start 05/23/18 at 11:00 Glucagon (Glucagen) 1 mg Q15M PRN IM DECREASED GLUCOSE; Start 05/23/18 at 11:00 Glucose (Glutose) 15 gm Q15M PRN BUCCAL DECREASED GLUCOSE; Start 05/23/18 at 11:00 Diagnostic Test (Pha) (Accu-Chek) 1 ea 02 XX ; Start 05/24/18 at 02:00 SCOTT SANTOS NP May 24, 2018 09:50
--- NOTE | 2018-05-24 12:50 | CONS ---
Assessment/Plan Assessment/Plan Hospital Course (Demo Recall) Acute on chronic systolic heart failure: grossly decompensated on admission, now improving Cardiomyopathy: EF 20-25%. In setting of diabetes and chest pain, will assume ischemic until proven otherwise Chest pain: Possible CAD vs from elevated end diastolic pressure from decompensated CHF. Cath when euvolemic DM -continue lasix 40mg IV BID -ASA, lipitor -enalapril 20mg -coreg when euvolemic -possible cardiac cath Saturday if able to lay flat and renal function remains normal Consultation Date/Type/Reason Admit Date/Time May 23, 2018 at 11:15 Initial Consult Date 05/23/18 Type of Consult Cardiology Date/Time of Note DATE: 05/24/18 TIME: 12:49 24 HR Interval Summary Free Text/Dictation No events. Diuresing well but I/O not correct. Feels better. Exam/Review of Systems Exam Vitals Vital Signs Date Temp Pulse Resp B/P (MAP) Pulse Ox O2 O2 Flow FiO2 Time Delivery Rate 05/24/18 98.0 83 18 110/76 95 Room Air 11:20 (87) Intake and Output 05/23/18 05/23/18 05/24/18 1515:00 23:00 07:00 IntakeIntake Total 620 ml 500 ml OutputOutput Total 1200 ml BalanceBalance 620 ml -700 ml Constitutional: alert, oriented Psych: no complaints, nl mood/affect Neck: jvd (10cm) Respiratory: clear to auscultation; No crackles/rales Cardiovascular: regular rate and rhythm, edema (1-2+); No systolic murmur Gastrointestinal: soft, non-tender Neurological: nl mental status, nl speech Results Result Diagram: 05/24/18 0458 05/24/18 0458 Results 24hrs Laboratory Tests Test 05/23/18 14:43 05/23/18 17:16 05/23/18 20:37 05/23/18 23:34 Creatine Kinase 70 Creatine Kinase 1.7 Index Creatinine Kinase MB 1.21 (Mass) Troponin I < 0.012 Bedside Glucose 153 176 Sodium Level 141 Potassium Level 4.0 Chloride Level 103 Carbon Dioxide Level 31 Anion Gap 7 Blood Urea Nitrogen 17 Creatinine 0.71 Est Glomerular > 60 Filtrat Rate mL/min Glucose Level 170 Calcium Level 9.6 Magnesium Level 2.3 Test 05/24/18 04:58 05/24/18 08:03 05/24/18 12:21 White Blood Count 5.2 Red Blood Count 4.24 Hemoglobin 11.7 L Hematocrit 37.2 Mean Corpuscular 87.7 Volume Mean Corpuscular 27.6 L Hemoglobin Mean Corpuscular 31.5 L Hemoglobin Concent Red Cell 14.1 Distribution Width Platelet Count 183 Mean Platelet Volume 10.8 H Immature 0.200 Granulocytes % Neutrophils % 52.8 Lymphocytes % 36.5 Monocytes % 8.4 Eosinophils % 1.5 Basophils % 0.6 Nucleated Red Blood 0.0 Cells % Immature 0.010 Granulocytes # Neutrophils # 2.8 Lymphocytes # 1.9 Monocytes # 0.4 Eosinophils # 0.1 Basophils # 0.0 Nucleated Red Blood 0.0 Cells # Sodium Level 141 Potassium Level 4.5 Chloride Level 103 Carbon Dioxide Level 30 Anion Gap 8 Blood Urea Nitrogen 16 Creatinine 0.69 Est Glomerular > 60 Filtrat Rate mL/min Glucose Level 168 Calcium Level 9.7 Phosphorus Level 4.7 Magnesium Level 2.1 B-Type Natriuretic 4400 H Peptide Bedside Glucose 162 109 Medications Medication Current Medications IV Flush (NS 3 ml) 3 ml PER PROTOCOL IV ; Start 05/23/18 at 06:00 Ondansetron HCl (Zofran Inj) 4 mg Q6H PRN IV NAUSEA/VOMITING; Start 05/23/18 at 06:00 Nitroglycerin (Nitroglycerin (Sl Tab) 0.4 Mg) 1 tab Q5M PRN SL .CHEST PAIN; Start 05/23/18 at 06:00 Acetaminophen (Tylenol Tab) 650 mg Q6H PRN PO .PAIN 1-3 OR TEMP Last administered on 05/24/18at 00:47; Admin Dose 650 MG; Start 05/23/18 at 06:00 Morphine Sulfate (morphine) 1 mg Q4H PRN IV .PAIN 7-10; Start 05/23/18 at 06:00 Furosemide (Lasix) 40 mg BID DIURETICS IV Last administered on 05/24/18at 06:10; Admin Dose 40 MG; Start 05/23/18 at 13:00 Enalapril Maleate (Vasotec) 20 mg DAILY PO Last administered on 05/24/18at 08:57; Admin Dose 20 MG; Start 05/23/18 at 09:00 Aspirin (Aspirin) 81 mg DAILY PO Last administered on 05/24/18at 08:57; Admin Do se 81 MG; Start 05/24/18 at 09:00 Atorvastatin Calcium (Lipitor) 40 mg DAILY@21 PO Last administered on 05/23/18at 20:39; Admin Dose 40 MG; Start 05/23/18 at 21:00 Enoxaparin Sodium (Lovenox) 40 mg DAILY SC Last administered on 05/24/18at 09:05; Admin Dose 40 MG; Start 05/23/18 at 11:00 Insulin Aspart (Novolog Insulin Pen) 4 unit WITH MEALS SC Last administered on 05/24/18at 12:26; Admin Dose 4 UNIT; Start 05/23/18 at 12:00 Insulin Aspart (Novolog Insulin Pen) NOVOLOG *MILD* ALGORITHM WITH MEALS BEDTIME SC Last administered on 05/24/18at 08:16; Admin Dose 1 UNIT; Start 05/23/18 at 12:00 Miscellaneous Information 1 ea NOTE XX ; Start 05/23/18 at 11:00 Glucose (Glutose) 15 gm Q15M PRN PO DECREASED GLUCOSE; Start 05/23/18 at 11:00 Glucose (Glutose) 22.5 gm Q15M PRN PO DECREASED GLUCOSE; Start 05/23/18 at 11:00 Dextrose (D50w Syringe) 25 ml Q15M PRN IV DECREASED GLUCOSE; Start 05/23/18 at 11:00 Dextrose (D50w Syringe) 50 ml Q15M PRN IV DECREASED GLUCOSE; Start 05/23/18 at 11:00 Glucagon (Glucagen) 1 mg Q15M PRN IM DECREASED GLUCOSE; Start 05/23/18 at 11:00 Glucose (Glutose) 15 gm Q15M PRN BUCCAL DECREASED GLUCOSE; Start 05/23/18 at 11:00 Diagnostic Test (Pha) (Accu-Chek) 1 ea 02 XX ; Start 05/24/18 at 02:00 Insulin Glargine (Lantus) 8 units DAILY@2000 SC ; Start 05/24/18 at 20:00 GUERA ESPINAL May 24, 2018 12:50
[2018-05-24] MEDS: ATORVASTATIN 40 MG TAB PO SCH (20:35)
[2018-05-24] MEDS: INSULIN GLARGINE [LANTus] (100 UNITS/ML) SYG SC SCH (20:43)
[2018-05-25] VITALS (14 sets, daily range): BP systolic 101–122; BP diastolic 66–79; PULSE 80–146; RESP 18
[2018-05-25] MEDS: ACETAMINOPHEN 325 MG TAB PO PRN (00:48)
[2018-05-25] MEDS: ACCUCHECK AT 2AM (Patients on SS coverage) XX SCH (02:00)
--- NOTE | 2018-05-25 06:13 | PN ---
Date/Time of Note Date/Time of Note DATE: 05/25/18 TIME: 06:12 Assessment/Plan VTE Prophylaxis Risk score (from N[place])>0 risk: 1 [place] [facility] [place] contraindicated: other Pharmacological prophylaxis: LMWH Lines/Catheters IV [facility]ter Type [facility]from [facility] [place] Assessment/Plan Hospital Course SUBJECTIVE: Denies any chest pain. OBJECTIVE: Physical Exam General: Obese, 57 year-old female lying in bed in no apparent distress. HEENT: Normocephalic, atraumatic. Eyes: Anicteric sclerae, conjunctivae clear. ENT: Nasal septum midline, oral mucosa moist. Neck supple, JVD noticed. Respiratory: Bilaterally diminished breath sounds. No use of accessory muscles of respiration. Bibasilar rales. Cardiovascular: S1, S2 heard. Regular rate and rhythm. Abdomen: Soft, nontender, and nondistended. Bowel sounds positive in all 4 quadrants. Genitourinary: Deferred. Extremities: No cyanosis, no clubbing. Trace bilateral lower extremity pitting edema. Peripheral pulses palpable. Neurologic: Cranial nerves II through XII grossly intact. The patient is awake, alert, and oriented. Skin: Normal skin turgor. No skin rashes. Labs & Vitals per chart ASSESSMENT & PLAN 57-year-old female with comorbidities including hypertension, dyslipidemia, diabetes mellitus type 2, and obesity who came to the emergency room with chief complaint of chest pain, shortness of breath, and cough. The patient's chest x- ray showed cardiomegaly and evidence of congestive heart failure. The patient was admitted to inpatient setting for further treatment and evaluation. 1. Chest pain. -Negative serial troponins. -Cardiology following. -Continue aspirin. 2. CHF exacerbation, systolic dysfunction. -Continue diuretic therapy. 3. Cardiomyopathy. -Ejection fraction of 20-25% as per 2D echocardiogram. -Continue LAURA inhibitors. -Initiation of beta-blockers will be deferred to cardiology. 4. Dyslipidemia. -Continue Lipitor. 5. Diabetes mellitus type 2. -Hemoglobin A1c 7.2. -Continue sliding scale insulin along with basal insulin and pre-meal insulin. 6. Hypertension. -Continue antihypertensives. 7. Pulmonary hypertension. -PA systolic pressure 46 mmHg. -Most probably secondary to left heart disease. 8. Fluids, electrolytes, and nutrition. -Carbohydrate controlled diet. 9. DVT prophylaxis. -Subcutaneous Lovenox. 10. Plan. -Continue telemetry monitoring. -Continue diuretic therapy. -Tentative plan for left heart catheterization on 05/26/2018. The patient was seen in collaboration with Dr. Payton. Result Diagram: 05/25/18 0502 05/24/18 0458 Results 24hrs Laboratory Tests Test 05/24/18 08:03 05/24/18 12:21 05/24/18 16:50 05/24/18 20:34 Bedside Glucose 162 109 172 138 Test 05/25/18 05:02 White Blood Count 6.6 # Red Blood Count 4.52 Hemoglobin 12.3 Hematocrit 39.6 Mean Corpuscular 87.6 Volume Mean Corpuscular 27.2 L Hemoglobin Mean Corpuscular 31.1 L Hemoglobin Concent Red Cell 14.1 Distribution Width Platelet Count 200 Mean Platelet Volume 10.9 H Immature 0.500 H Granulocytes % Neutrophils % 52.1 Lymphocytes % 38.1 Monocytes % 7.5 Eosinophils % 1.5 Basophils % 0.3 Nucleated Red Blood 0.0 Cells % Immature 0.030 Granulocytes # Neutrophils # 3.5 Lymphocytes # 2.5 Monocytes # 0.5 Eosinophils # 0.1 Basophils # 0.0 Nucleated Red Blood 0.0 Cells # Exam/Review of Systems Exam Vitals Vital Signs Date Temp Pulse Resp B/P (MAP) Pulse Ox O2 O2 Flow FiO2 Time Delivery Rate 05/25/18 80 04:00 05/25/18 98.2 122/79 99 Room Air 00:00 (93) 05/24/18 20 16:00 Intake and Output 05/24/18 05/24/18 05/25/18 1414:59 22:59 06:59 IntakeIntake Total 800 ml OutputOutput Total 1000 ml BalanceBalance -200 ml Results Results 24hrs Laboratory Tests Test 05/24/18 08:03 05/24/18 12:21 05/24/18 16:50 05/24/18 20:34 Bedside Glucose 162 109 172 138 Test 05/25/18 05:02 White Blood Count 6.6 # Red Blood Count 4.52 Hemoglobin 12.3 Hematocrit 39.6 Mean Corpuscular 87.6 Volume Mean Corpuscular 27.2 L Hemoglobin Mean Corpuscular 31.1 L Hemoglobin Concent Red Cell 14.1 Distribution Width Platelet Count 200 Mean Platelet Volume 10.9 H Immature 0.500 H Granulocytes % Neutrophils % 52.1 Lymphocytes % 38.1 Monocytes % 7.5 Eosinophils % 1.5 Basophils % 0.3 Nucleated Red Blood 0.0 Cells % Immature 0.030 Granulocytes # Neutrophils # 3.5 Lymphocytes # 2.5 Monocytes # 0.5 Eosinophils # 0.1 Basophils # 0.0 Nucleated Red Blood 0.0 Cells # Medications Medication Current Medications IV Flush (NS 3 ml) 3 ml PER PROTOCOL IV ; Start 05/23/18 at 06:00 Ondansetron HCl (Zofran Inj) 4 mg Q6H PRN IV NAUSEA/VOMITING; Start 05/23/18 at 06:00 Nitroglycerin (Nitroglycerin (Sl Tab) 0.4 Mg) 1 tab Q5M PRN SL .CHEST PAIN; Start 05/23/18 at 06:00 Acetaminophen (Tylenol Tab) 650 mg Q6H PRN PO .PAIN 1-3 OR TEMP Last administered on 05/25/18at 00:48; Admin Dose 650 MG; Start 05/23/18 at 06:00 Morphine Sulfate (morphine) 1 mg Q4H PRN IV .PAIN 7-10; Start 05/23/18 at 06:00 Furosemide (Lasix) 40 mg BID DIURETICS IV Last administered on 05/24/18at 17:27; Admin Dose 40 MG; Start 05/23/18 at 13:00 Enalapril Maleate (Vasotec) 20 mg DAILY PO Last administered on 05/24/18 08:57; Admin Dose 20 MG; Start 05/23/18 at 09:00 Aspirin (Aspirin) 81 mg DAILY PO Last administered on 05/24/18 08:57; Admin Dose 81 MG; Start 05/24/18 at 09:00 Atorvastatin Calcium (Lipitor) 40 mg DAILY@21 PO Last administered on 05/24/18at 20:35; Admin Dose 40 MG; Start 05/23/18 at 21:00 Enoxaparin Sodium (Lovenox) 40 mg DAILY SC Last administered on 05/24/18at 09:05; Admin Dose 40 MG; Start 05/23/18 at 11:00 Insulin Aspart (Novolog Insulin Pen) 4 unit WITH MEALS SC Last administered on 05/24/18at 17:33; Admin Dose 4 UNIT; Start 05/23/18 at 12:00 Insulin Aspart (Novolog Insulin Pen) NOVOLOG *MILD* ALGORITHM WITH MEALS BEDTIME SC Last administered on 05/24/18at 17:33; Admin Dose 1 UNIT; Start 05/23/18 at 12:00 Miscellaneous Information 1 ea NOTE XX ; Start 05/23/18 at 11:00 Glucose (Glutose) 15 gm Q15M PRN PO DECREASED GLUCOSE; Start 05/23/18 at 11:00 Glucose (Glutose) 22.5 gm Q15M PRN PO DECREASED GLUCOSE; Start 05/23/18 at 11:00 Dextrose (D50w Syringe) 25 ml Q15M PRN IV DECREASED GLUCOSE; Start 05/23/18 at 11:00 Dextrose (D50w Syringe) 50 ml Q15M PRN IV DECREASED GLUCOSE; Start 05/23/18 at 11:00 Glucagon (Glucagen) 1 mg Q15M PRN IM DECREASED GLUCOSE; Start 05/23/18 at 11:00 Glucose (Glutose) 15 gm Q15M PRN BUCCAL DECREASED GLUCOSE; Start 05/23/18 at 11:00 Diagnostic Test (Pha) (Accu-Chek) 1 ea 02 XX ; Start 05/24/18 at 02:00 Insulin Glargine (Lantus) 8 units DAILY@1999 SC Last administered on 05/24/18at 20:43; Admin Dose 8 UNITS; Start 05/24/18 at 20:00 SCOTT SANTOS NP May 25, 2018 06:13
[2018-05-25] MEDS: FUROSEMIDE 40 MG INJ IV SCH (06:16)
[2018-05-25] MEDS: INSULIN ASPART [NOVOLOG] 3 ML PEN SC SCH ×7 (07:57→20:59)
[2018-05-25] MEDS: ASPIRIN 81 MG TAB PO SCH (08:59)
[2018-05-25] MEDS: ENALAPRIL 20 MG TAB PO SCH (09:00)
[2018-05-25] MEDS: ENOXAPARIN 40 MG/0.4 ML SYG SC SCH (09:06)
--- NOTE | 2018-05-25 12:17 | CONS ---
Assessment/Plan Assessment/Plan Hospital Course (Demo Recall) Acute on chronic systolic heart failure: grossly decompensated on admission, now improving and close to euvolemic Cardiomyopathy: EF 20-25%. In setting of diabetes and chest pain, will assume ischemic until proven otherwise Chest pain: Possible CAD vs from elevated end diastolic pressure from decompensated CHF. DM -NPo after midnight for cardiac cath in am -start coreg 6.25mg BID -decrease to lasix 20mg IV BID -ASA, lipitor -enalapril 20mg Consultation Date/Type/Reason Admit Date/Time May 23, 2018 at 11:15 Initial Consult Date 05/23/18 Type of Consult Cardiology Date/Time of Note DATE: 05/25/18 TIME: 12:15 24 HR Interval Summary Free Text/Dictation Short runs of NSVT this am. No symptoms. SOB resolved. Feels much better overall. Exam/Review of Systems Exam Vitals Vital Signs Date Temp Pulse Resp B/P (MAP) Pulse Ox O2 O2 Flow FiO2 Time Delivery Rate 05/25/18 146 12:10 05/25/18 98.2 18 112/68 96 11:05 (83) 05/25/18 Room Air 06:14 Intake and Output 05/24/18 05/24/18 05/25/18 1515:00 23:00 07:00 IntakeIntake Total 800 ml 750 ml OutputOutput Total 1000 ml 1200 ml BalanceBalance -200 ml -450 ml Constitutional: alert, oriented Psych: no complaints, nl mood/affect Neck: jvd (8cm) Respiratory: clear to auscultation; No crackles/rales Cardiovascular: regular rate and rhythm, edema (1+); No systolic murmur Gastrointestinal: soft, non-tender Neurological: nl mental status, nl speech Results Result Diagram: 05/25/18 0502 05/25/18 0501 Results 24hrs Laboratory Tests Test 05/24/18 12:21 05/24/18 16:50 05/24/18 20:34 05/25/18 05:01 Bedside Glucose 109 172 138 Sodium Level 143 Potassium Level 4.2 Chloride Level 103 Carbon Dioxide Level 30 Anion Gap 10 Blood Urea Nitrogen 20 Creatinine 0.72 Est Glomerular > 60 Filtrat Rate mL/min Glucose Level 160 Calcium Level 9.7 Phosphorus Level 4.7 Magnesium Level 2.1 Test 05/25/18 05:02 05/25/18 07:50 White Blood Count 6.6 # Red Blood Count 4.52 Hemoglobin 12.3 Hematocrit 39.6 Mean Corpuscular 87.6 Volume Mean Corpuscular 27.2 L Hemoglobin Mean Corpuscular 31.1 L Hemoglobin Concent Red Cell 14.1 Distribution Width Platelet Count 200 Mean Platelet Volume 10.9 H Immature 0.500 H Granulocytes % Neutrophils % 52.1 Lymphocytes % 38.1 Monocytes % 7.5 Eosinophils % 1.5 Basophils % 0.3 Nucleated Red Blood 0.0 Cells % Immature 0.030 Granulocytes # Neutrophils # 3.5 Lymphocytes # 2.5 Monocytes # 0.5 Eosinophils # 0.1 Basophils # 0.0 Nucleated Red Blood 0.0 Cells # Bedside Glucose 144 Medications Medication Current Medications IV Flush (NS 3 ml) 3 ml PER PROTOCOL IV ; Start 05/23/18 at 06:00 Ondansetron HCl (Zofran Inj) 4 mg Q6H PRN IV NAUSEA/VOMITING; Start 05/23/18 at 06:00 Nitroglycerin (Nitroglycerin (Sl Tab) 0.4 Mg) 1 tab Q5M PRN SL .CHEST PAIN; Start 05/23/18 at 06:00 Acetaminophen (Tylenol Tab) 650 mg Q6H PRN PO .PAIN 1-3 OR TEMP Last administered on 05/25/18at 00:48; Admin Dose 650 MG; Start 05/23/18 at 06:00 Morphine Sulfate (morphine) 1 mg Q4H PRN IV .PAIN 7-10; Start 05/23/18 at 06:00 Furosemide (Lasix) 40 mg BID DIURETICS IV Last administered on 05/25/18at 06:16; Admin Dose 40 MG; Start 05/23/18 at 13:00 Enalapril Maleate (Vasotec) 20 mg DAILY PO Last administered on 05/25/18at 09:00; Admin Dose 20 MG; Start 05/23/18 at 09:00 Aspirin (Aspirin) 81 mg DAILY PO Last administered on 05/25/18at 08:59; Admin Dose 81 MG; Start 05/24/18 at 09:00 Atorvastatin Calcium (Lipitor) 40 mg DAILY@21 PO Last administered on 05/24/18at 20:35; Admin Dose 40 MG; Start 05/23/18 at 21:00 Enoxaparin Sodium (Lovenox) 40 mg DAILY SC Last administered on 05/25/18at 0 9:06; Admin Dose 40 MG; Start 05/23/18 at 11:00 Insulin Aspart (Novolog Insulin Pen) 4 unit WITH MEALS SC Last administered on 05/25/18at 07:57; Admin Dose 4 UNIT; Start 05/23/18 at 12:00 Insulin Aspart (Novolog Insulin Pen) NOVOLOG *MILD* ALGORITHM WITH MEALS BEDTIME SC Last administered on 05/25/18at 07:57; Admin Dose 1 UNIT; Start 05/23/18 at 12:00 Miscellaneous Information 1 ea NOTE XX ; Start 05/23/18 at 11:00 Glucose (Glutose) 15 gm Q15M PRN PO DECREASED GLUCOSE; Start 05/23/18 at 11:00 Glucose (Glutose) 22.5 gm Q15M PRN PO DECREASED GLUCOSE; Start 05/23/18 at 11:00 Dextrose (D50w Syringe) 25 ml Q15M PRN IV DECREASED GLUCOSE; Start 05/23/18 at 11:00 Dextrose (D50w Syringe) 50 ml Q15M PRN IV DECREASED GLUCOSE; Start 05/23/18 at 11:00 Glucagon (Glucagen) 1 mg Q15M PRN IM DECREASED GLUCOSE; Start 05/23/18 at 11:00 Glucose (Glutose) 15 gm Q15M PRN BUCCAL DECREASED GLUCOSE; Start 05/23/18 at 11:00 Diagnostic Test (Pha) (Accu-Chek) 1 ea 02 XX ; Start 05/24/18 at 02:00 Insulin Glargine (Lantus) 8 units DAILY@1999 SC Last administered on 05/24/18at 20:43; Admin Dose 8 UNITS; Start 05/24/18 at 20:00 GUERA ESPINAL May 25, 2018 12:17
[2018-05-25] MEDS: FUROSEMIDE 20 MG INJ IV SCH (17:19)
[2018-05-25] MEDS: ATORVASTATIN 40 MG TAB PO SCH (20:58)
[2018-05-25] MEDS: INSULIN GLARGINE [LANTus] (100 UNITS/ML) SYG SC SCH (21:30)
[2018-05-26] VITALS (16 sets, daily range): BP systolic 100–119; BP diastolic 58–74; PULSE 79–147; RESP 18–20
[2018-05-26] MEDS: ACCUCHECK AT 2AM (Patients on SS coverage) XX SCH (02:00)
[2018-05-26] MEDS: FUROSEMIDE 20 MG INJ IV SCH (05:41)
[2018-05-26] MEDS: INSULIN ASPART [NOVOLOG] 3 ML PEN SC SCH ×7 (07:51→21:34)
[2018-05-26] MEDS: ENALAPRIL 20 MG TAB PO SCH (08:58)
[2018-05-26] MEDS: ASPIRIN 81 MG TAB PO SCH (08:58)
[2018-05-26] MEDS: ENOXAPARIN 40 MG/0.4 ML SYG SC SCH (09:53)
--- NOTE | 2018-05-26 16:54 | CONS ---
Assessment/Plan Assessment/Plan Hospital Course (Demo Recall) Acute on chronic systolic heart failure: grossly decompensated on admission, now ~euvolemic Paroxysmal atrial fibrillation: CHADSVASC is 3 and will need chronic anticoagula tion after cardiac cath Cardiomyopathy: EF 20-25%. In setting of diabetes and chest pain, will assume ischemic until proven otherwise Chest pain: Possible CAD vs from elevated end diastolic pressure from decompensated CHF. 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 Doing well overall. Had a run of atrial fibrillation with RVR yesterday for about 2 minutes. Exam/Review of Systems Exam Vitals Vital Signs Date Temp Pulse Resp B/P (MAP) Pulse Ox O2 O2 Flow FiO2 Time Delivery Rate 05/26/18 98.3 92 20 106/63 98 Room Air 16:03 (77) Intake and Output 05/25/18 05/25/18 05/26/18 1515:00 23:00 07:00 IntakeIntake Total 550 ml 400 ml OutputOutput Total 1400 ml 1100 ml BalanceBalance -850 ml -700 ml Constitutional: alert, oriented Psych: no complaints, nl mood/affect Head: normocephalic, atraumatic Neck: No jvd Respiratory: clear to auscultation; No crackles/rales Cardiovascular: regular rate and rhythm, edema (1+); No systolic murmur Gastrointestinal: soft, non-tender; No distended Musculoskeletal: nl extremities to inspection Neurological: nl mental status, nl speech Results Result Diagram: 05/26/18 0458 05/26/18 0458 Results 24hrs Laboratory Tests Test 05/25/18 17:16 05/25/18 20:56 05/26/18 04:58 05/26/18 07:50 Bedside Glucose 227 H 161 151 White Blood Count 6.2 Red Blood Count 4.43 Hemoglobin 12.2 Hematocrit 39.3 Mean Corpuscular 88.7 Volume Mean Corpuscular 27.5 L Hemoglobin Mean Corpuscular 31.0 L Hemoglobin Concent Red Cell 13.9 Distribution Width Platelet Count 212 Mean Platelet Volume 11.2 H Immature 0.300 Granulocytes % Neutrophils % 56.3 Lymphocytes % 32.1 Monocytes % 9.2 Eosinophils % 1.6 Basophils % 0.5 Nucleated Red Blood 0.0 Cells % Immature 0.020 Granulocytes # Neutrophils # 3.5 Lymphocytes # 2.0 Monocytes # 0.6 Eosinophils # 0.1 Basophils # 0.0 Nucleated Red Blood 0.0 Cells # Sodium Level 141 Potassium Level 4.5 Chloride Level 101 Carbon Dioxide Level 30 Anion Gap 10 Blood Urea Nitrogen 21 H Creatinine 0.69 Est Glomerular > 60 Filtrat Rate mL/min Glucose Level 172 Calcium Level 9.6 Phosphorus Level 3.9 Magnesium Level 2.0 Test 05/26/18 11:38 Bedside Glucose 135 Medications Medication Current Medications IV Flush (NS 3 ml) 3 ml PER PROTOCOL IV ; Start 05/23/18 at 06:00 Ondansetron HCl (Zofran Inj) 4 mg Q6H PRN IV NAUSEA/VOMITING; Start 05/23/18 at 06:00 Nitroglycerin (Nitroglycerin (Sl Tab) 0.4 Mg) 1 tab Q5M PRN SL .CHEST PAIN; Start 05/23/18 at 06:00 Acetaminophen (Tylenol Tab) 650 mg Q6H PRN PO .PAIN 1-3 OR TEMP Last admi nistered on 05/25/18at 00:48; Admin Dose 650 MG; Start 05/23/18 at 06:00 Morphine Sulfate (morphine) 1 mg Q4H PRN IV .PAIN 7-10; Start 05/23/18 at 06:00 Enalapril Maleate (Vasotec) 20 mg DAILY PO Last administered on 05/26/18at 08:58; Admin Dose 20 MG; Start 05/23/18 at 09:00 Aspirin (Aspirin) 81 mg DAILY PO Last administered on 05/26/18at 08:58; Admin Dose 81 MG; Start 05/24/18 at 09:00 Atorvastatin Calcium (Lipitor) 40 mg DAILY@21 PO Last administered on 05/25/18at 20:58; Admin Dose 40 MG; Start 05/23/18 at 21:00 Enoxaparin Sodium (Lovenox) 40 mg DAILY SC Last administered on 05/26/18 09:5 3; Admin Dose 40 MG; Start 05/23/18 at 11:00 Insulin Aspart (Novolog Insulin Pen) 4 unit WITH MEALS SC Last administered on 05/26/18 11:59; Admin Dose 4 UNIT; Start 05/23/18 at 12:00 Insulin Aspart (Novolog Insulin Pen) NOVOLOG *MILD* ALGORITHM WITH MEALS BEDTIME SC Last administered on 05/25/18 17:27; Admin Dose 3 UNIT; Start 05/23/18 at 12:00 Miscellaneous Information 1 ea NOTE XX ; Start 05/23/18 at 11:00 Glucose (Glutose) 15 gm Q15M PRN PO DECREASED GLUCOSE; Start 05/23/18 at 11:00 Glucose (Glutose) 22.5 gm Q15M PRN PO DECREASED GLUCOSE; Start 05/23/18 at 11:00 Dextrose (D50w Syringe) 25 ml Q15M PRN IV DECREASED GLUCOSE; Start 05/23/18 at 11:00 Dextrose (D50w Syringe) 50 ml Q15M PRN IV DECREASED GLUCOSE; Start 05/23/18 at 11:00 Glucagon (Glucagen) 1 mg Q15M PRN IM DECREASED GLUCOSE; Start 05/23/18 at 11:00 Glucose (Glutose) 15 gm Q15M PRN BUCCAL DECREASED GLUCOSE; Start 05/23/18 at 11:00 Diagnostic Test (Pha) (Accu-Chek) 1 ea 02 XX ; Start 05/24/18 at 02:00 Insulin Glargine (Lantus) 8 units DAILY@2000 SC Last administered on 05/25/18at 21:30; Admin Dose 8 UNITS; Start 05/24/18 at 20:00 Furosemide (Lasix) 20 mg BID DIURETICS IV Last administered on 05/26/18 05:41; Admin Dose 20 MG; Start 05/25/18 at 18:00 Carvedilol (Coreg) 6.25 mg BID PO Last administered on 05/26/18 08:57; Admin Dose 6.25 MG; Start 05/25/18 at 12:30 GUERA ESPINAL May 26, 2018 16:54
[2018-05-26] MEDS: ATORVASTATIN 40 MG TAB PO SCH (21:24)
[2018-05-26] MEDS: INSULIN GLARGINE [LANTus] (100 UNITS/ML) SYG SC SCH (21:34)
[2018-05-27] VITALS (38 sets, daily range): BP systolic 91–112; BP diastolic 56–81; PULSE 68–99; RESP 10–24
[2018-05-27] MEDS: ACCUCHECK AT 2AM (Patients on SS coverage) XX SCH (02:00)
[2018-05-27] MEDS: INSULIN ASPART [NOVOLOG] 3 ML PEN SC SCH ×7 (08:05→20:20)
[2018-05-27] MEDS: FUROSEMIDE 40 MG TAB PO SCH (08:36)
[2018-05-27] MEDS: ASPIRIN 81 MG TAB PO SCH (08:37)
[2018-05-27] MEDS: ENALAPRIL 20 MG TAB PO SCH (08:37)
[2018-05-27] MEDS: ENOXAPARIN 40 MG/0.4 ML SYG SC SCH (08:48)
--- NOTE | 2018-05-27 11:44 | CONS ---
Assessment/Plan Assessment/Plan Hospital Course (Demo Recall) Acute on chronic systolic heart failure: grossly decompensated on admission, now ~euvolemic Paroxysmal atrial fibrillation: CHADSVASC is 3 and will need chronic anticoagula tion after cardiac cath Cardiomyopathy: EF 20-25%. In setting of diabetes and chest pain, will assume ischemic until proven otherwise Chest pain: Possible CAD vs from elevated end diastolic pressure from decompensated CHF. DM -NPO for cath ~3 pm -coreg 6.25mg BID, uptitrate as tolerated -lasix 40mg PO daily -ASA (switch to Eliquis if no CAD on cath) -lipitor -enalapril 20mg Consultation Date/Type/Reason Admit Date/Time May 23, 2018 at 11:15 Initial Consult Date 05/23/18 Type of Consult Cardiology Date/Time of Note DATE: 05/27/18 TIME: 11:42 24 HR Interval Summary Free Text/Dictation Episodes of nonsustained afib and NSVT up to 10 beats. No SOB or chest pain. Exam/Review of Systems Exam Vitals Vital Signs Date Temp Pulse Resp B/P (MAP) Pulse Ox O2 O2 Flow FiO2 Time Delivery Rate 05/27/18 98.6 78 104/62 97 Room Air 11:19 (76) 05/27/18 18 07:14 Intake and Output 05/26/18 05/26/18 05/27/18 1515:00 23:00 07:00 IntakeIntake Total 1080 ml 400 ml OutputOutput Total 800 ml BalanceBalance 280 ml 400 ml Constitutional: alert, oriented Head: normocephalic, atraumatic Neck: No jvd Respiratory: clear to auscultation; No crackles/rales Cardiovascular: regular rate and rhythm, edema (trace-1+) Gastrointestinal: soft, non-tender; No distended Neurological: nl mental status, nl speech Results Result Diagram: 05/27/18 0506 05/27/18 0506 Results 24hrs Laboratory Tests Test 05/26/18 17:11 05/26/18 21:22 05/27/18 02:07 05/27/18 05:06 Bedside Glucose 181 217 187 White Blood Count 5.8 Red Blood Count 4.41 Hemoglobin 12.0 Hematocrit 39.2 Mean Corpuscular 88.9 Volume Mean Corpuscular 27.2 L Hemoglobin Mean Corpuscular 30.6 L Hemoglobin Concent Red Cell 13.9 Distribution Width Platelet Count 200 Mean Platelet Volume 11.0 H Immature 0.200 Granulocytes % Neutrophils % 51.5 Lymphocytes % 36.1 Monocytes % 10.0 Eosinophils % 1.7 Basophils % 0.5 Nucleated Red Blood 0.0 Cells % Immature 0.010 Granulocytes # Neutrophils # 3.0 Lymphocytes # 2.1 Monocytes # 0.6 Eosinophils # 0.1 Basophils # 0.0 Nucleated Red Blood 0.0 Cells # Sodium Level 141 Potassium Level 4.4 Chloride Level 101 Carbon Dioxide Level 30 Anion Gap 10 Blood Urea Nitrogen 22 H Creatinine 0.66 Est Glomerular > 60 Filtrat Rate mL/min Glucose Level 185 Calcium Level 9.5 Phosphorus Level 3.7 Magnesium Level 2.0 Test 05/27/18 08:00 Bedside Glucose 147 Medications Medication Current Medications IV Flush (NS 3 ml) 3 ml PER PROTOCOL IV ; Start 05/23/18 at 06:00 Ondansetron HCl (Zofran Inj) 4 mg Q6H PRN IV NAUSEA/VOMITING; Start 05/23/18 at 06:00 Nitroglycerin (Nitroglycerin (Sl Tab) 0.4 Mg) 1 tab Q5M PRN SL .CHEST PAIN; Start 05/23/18 at 06:00 Acetaminophen (Tylenol Tab) 650 mg Q6H PRN PO .PAIN 1-3 OR TEMP Last administered on 05/25/18at 00:48; Admin Dose 650 MG; Start 05/23/18 at 06:00 Morphine Sulfate (morphine) 1 mg Q4H PRN IV .PAIN 7-10; Start 05/23/18 at 06:00 Enalapril Maleate (Vasotec) 20 mg DAILY PO Last administered on 05/27/18at 08:37; Admin Dose 20 MG; Start 05/23/18 at 09:00 Aspirin (Aspirin) 81 mg DAILY PO Last administered on 05/27/18at 08:37; Admin Dose 81 MG; Start 05/24/18 at 09:00 Atorvastatin Calcium (Lipitor) 40 mg DAILY@21 PO Last administered on 05/26/18at 21:24; Admin Dose 40 MG; Start 05/23/18 at 21:00 Enoxaparin Sodium (Lovenox) 40 mg DAILY SC Last administered on 05/27/18at 08:48; Admin Dose 40 MG; Start 05/23/18 at 11:00 Insulin Aspart (Novolog Insulin Pen) 4 unit WITH MEALS SC Last administered on 05/27/18at 08:05; Admin Dose 4 UNIT; Start 05/23/18 at 12:00 Insulin Aspart (Novolog Insulin Pen) NOVOLOG *MILD* ALGORITHM WITH MEALS BEDTIME SC Last administered on 05/27/18at 08:05; Admin Dose 1 UNIT; Start 05/23/18 at 12:00 Miscellaneous Information 1 ea NOTE XX ; Start 05/23/18 at 11:00 Glucose (Glutose) 15 gm Q15M PRN PO DECREASED GLUCOSE; Start 05/23/18 at 11:00 Glucose (Glutose) 22.5 gm Q15M PRN PO DECREASED GLUCOSE; Start 05/23/18 at 11:00 Dextrose (D50w Syringe) 25 ml Q15M PRN IV DECREASED GLUCOSE; Start 05/23/18 at 11:00 Dextrose (D50w Syringe) 50 ml Q15M PRN IV DECREASED GLUCOSE; Start 05/23/18 at 11:00 Glucagon (Glucagen) 1 mg Q15M PRN IM DECREASED GLUCOSE; Start 05/23/18 at 11:00 Glucose (Glutose) 15 gm Q15M PRN BUCCAL DECREASED GLUCOSE; Start 05/23/18 at 11:00 Diagnostic Test (Pha) (Accu-Chek) 1 ea 02 XX ; Start 05/24/18 at 02:00 Insulin Glargine (Lantus) 8 units DAILY@2000 SC Last administered on 05/26/18at 21:34; Admin Dose 8 UNITS; Start 05/24/18 at 20:00 Carvedilol (Coreg) 6.25 mg BID PO Last administered on 05/27/18at 08:36; Admin Dose 6.25 MG; Start 05/25/18 at 12:30 Furosemide (Lasix) 40 mg DAILY PO Last administered on 05/27/18at 08:36; Admin Dose 40 MG; Start 05/27/18 at 09:00 GUERA ESPINAL May 27, 2018 11:44
--- NOTE | 2018-05-27 14:11 | PN ---
Date/Time of Note Date/Time of Note DATE: 05/27/18 TIME: 13:58 Assessment/Plan VTE Prophylaxis Risk score (from Ns)>0 risk: 2 SCD applied (from Ns): No SCD contraindicated: low risk/ambulating Pharmacological prophylaxis: NA/contraindicated Pharm contraindication: low risk/ambulating, surgical contra Lines/Catheters [facility]from [facility] Saline Lock Assessment/Plan Hospital Course Assessment and plan 1. Chest pain ro ACS. Lateral T wave changes noted. cath today. 2. Cardiomyopathy EF of 20. Likely ischemic, cath pending. cont medical management 3. Type 2 diabetes A1c 7.2 fairly decent control 4. Metabolic syndrome 5. Hypertension 6. Dyslipidemia 7. Nsvt, treat #1/2 S: No distress. Occ cough. No chest pain. Fh of cad? O: Vss PE No pallor or carotid bruits JVD Reg Clear Overweight Edema negative Homans Result Diagram: 05/27/18 0506 05/27/18 0506 Results 24hrs Laboratory Tests Test 05/26/18 17:11 05/26/18 21:22 05/27/18 02:07 05/27/18 05:06 Bedside Glucose 181 217 187 White Blood Count 5.8 Red Blood Count 4.41 Hemoglobin 12.0 Hematocrit 39.2 Mean Corpuscular 88.9 Volume Mean Corpuscular 27.2 L Hemoglobin Mean Corpuscular 30.6 L Hemoglobin Concent Red Cell 13.9 Distribution Width Platelet Count 200 Mean Platelet Volume 11.0 H Immature 0.200 Granulocytes % Neutrophils % 51.5 Lymphocytes % 36.1 Monocytes % 10.0 Eosinophils % 1.7 Basophils % 0.5 Nucleated Red Blood 0.0 Cells % Immature 0.010 Granulocytes # Neutrophils # 3.0 Lymphocytes # 2.1 Monocytes # 0.6 Eosinophils # 0.1 Basophils # 0.0 Nucleated Red Blood 0.0 Cells # Sodium Level 141 Potassium Level 4.4 Chloride Level 101 Carbon Dioxide Level 30 Anion Gap 10 Blood Urea Nitrogen 22 H Creatinine 0.66 Est Glomerular > 60 Filtrat Rate mL/min Glucose Level 185 Calcium Level 9.5 Phosphorus Level 3.7 Magnesium Level 2.0 Test 05/27/18 08:00 05/27/18 11:53 Bedside Glucose 147 198 Exam/Review of Systems Exam Vitals Vital Signs Date Temp Pulse Resp B/P (MAP) Pulse Ox O2 O2 Flow FiO2 Time Delivery Rate 05/27/18 73 13:43 05/27/18 98.6 104/62 97 Room Air 11:19 (76) 05/27/18 18 07:14 Intake and Output 05/26/18 05/26/18 05/27/18 1515:00 23:00 07:00 IntakeIntake Total 1080 ml 400 ml OutputOutput Total 800 ml BalanceBalance 280 ml 400 ml Results Results 24hrs Laboratory Tests Test 05/26/18 17:11 05/26/18 21:22 05/27/18 02:07 05/27/18 05:06 Bedside Glucose 181 217 187 White Blood Count 5.8 Red Blood Count 4.41 Hemoglobin 12.0 Hematocrit 39.2 Mean Corpuscular 88.9 Volume Mean Corpuscular 27.2 L Hemoglobin Mean Corpuscular 30.6 L Hemoglobin Concent Red Cell 13.9 Distribution Width Platelet Count 200 Mean Platelet Volume 11.0 H Immature 0.200 Granulocytes % Neutrophils % 51.5 Lymphocytes % 36.1 Monocytes % 10.0 Eosinophils % 1.7 Basophils % 0.5 Nucleated Red Blood 0.0 Cells % Immature 0.010 Granulocytes # Neutrophils # 3.0 Lymphocytes # 2.1 Monocytes # 0.6 Eosinophils # 0.1 Basophils # 0.0 Nucleated Red Blood 0.0 Cells # Sodium Level 141 Potassium Level 4.4 Chloride Level 101 Carbon Dioxide Level 30 Anion Gap 10 Blood Urea Nitrogen 22 H Creatinine 0.66 Est Glomerular > 60 Filtrat Rate mL/min Glucose Level 185 Calcium Level 9.5 Phosphorus Level 3.7 Magnesium Level 2.0 Test 05/27/18 08:00 05/27/18 11:53 Bedside Glucose 147 198 Medications Medication Current Medications IV Flush (NS 3 ml) 3 ml PER PROTOCOL IV ; Start 05/23/18 at 06:00 Ondansetron HCl (Zofran Inj) 4 mg Q6H PRN IV NAUSEA/VOMITING; Start 05/23/18 at 06:00 Nitroglycerin (Nitroglycerin (Sl Tab) 0.4 Mg) 1 tab Q5M PRN SL .CHEST PAIN; Start 05/23/18 at 06:00 Acetaminophen (Tylenol Tab) 650 mg Q6H PRN PO .PAIN 1-3 OR TEMP Last administered on 05/25/18at 00:48; Admin Dose 650 MG; Start 05/23/18 at 06:00 Morphine Sulfate (morphine) 1 mg Q4H PRN IV .PAIN 7-10; Start 05/23/18 at 06:00 Enalapril Maleate (Vasotec) 20 mg DAILY PO Last administered on 05/27/18at 08:37; Admin Dose 20 MG; Start 05/23/18 at 09:00 Aspirin (Aspirin) 81 mg DAILY PO Last administered on 05/27/18at 08:37; Admin Dose 81 MG; Start 05/24/18 at 09:00 Atorvastatin Calcium (Lipitor) 40 mg DAILY@21 PO Last administered on 05/26/18at 21:24; Admin Dose 40 MG; Start 05/23/18 at 21:00 Enoxaparin Sodium (Lovenox) 40 mg DAILY SC Last administered on 05/27/18at 08:48; Admin Dose 40 MG; Start 05/23/18 at 11:00 Insulin Aspart (Novolog Insulin Pen) 4 unit WITH MEALS SC Last administered on 05/27/18at 08:05; Admin Dose 4 UNIT; Start 05/23/18 at 12:00 Insulin Aspart (Novolog Insulin Pen) NOVOLOG *MILD* ALGORITHM WITH MEALS BEDTIME SC Last administered on 05/27/18 08:05; Admin Dose 1 UNIT; Start 05/23/18 at 12:00 Miscellaneous Information 1 ea NOTE XX ; Start 05/23/18 at 11:00 Glucose (Glutose) 15 gm Q15M PRN PO DECREASED GLUCOSE; Start 05/23/18 at 11:00 Glucose (Glutose) 22.5 gm Q15M PRN PO DECREASED GLUCOSE; Start 05/23/18 at 11:00 Dextrose (D50w Syringe) 25 ml Q15M PRN IV DECREASED GLUCOSE; Start 05/23/18 at 11:00 Dextrose (D50w Syringe) 50 ml Q15M PRN IV DECREASED GLUCOSE; Start 05/23/18 at 11:00 Glucagon (Glucagen) 1 mg Q15M PRN IM DECREASED GLUCOSE; Start 05/23/18 at 11:00 Glucose (Glutose) 15 gm Q15M PRN BUCCAL DECREASED GLUCOSE; Start 05/23/18 at 11:00 Diagnostic Test (Pha) (Accu-Chek) 1 ea 02 XX ; Start 05/24/18 at 02:00 Insulin Glargine (Lantus) 8 units DAILY@2000 SC Last administered on 05/26/18at 21:34; Admin Dose 8 UNITS; Start 05/24/18 at 20:00 Carvedilol (Coreg) 6.25 mg BID PO Last administered on 05/27/18at 08:36; Admin Dose 6.25 MG; Start 05/25/18 at 12:30 Furosemide (Lasix) 40 mg DAILY PO Last administered on 05/27/18at 08:36; Admin Dose 40 MG; Start 05/27/18 at 09:00 MILANA LI MD May 27, 2018 14:11
--- NOTE | 2018-05-27 14:13 | PN ---
Date/Time of Note Date/Time of Note DATE: 05/27/18 TIME: 14:12 Assessment/Plan VTE Prophylaxis [place] [facility] [place] risk: 2 SCD applied ([place] [facility] [place] No SCD contraindicated: low risk/ambulating Pharmacological prophylaxis: NA/contraindicated Pharm contraindication: surgical contra Lines/Catheters IV Catheter Type (from [facility]): Saline Lock Assessment/Plan Hospital Course 05/26 late entry A/P 1. Chest pain/abn EKG, ro ACS. 2. Cardiomyopathy EF of 20%. ischemic? 3. Type 2 dm 4. Metabolic syndrome 5. Hypertension 6. Dyslipidemia 7. Nsvt, treat #1/2 S: Events noted O: Vss PE No pallor/ JVD Reg Clear Overweight mod Edema, negative Homans Result Diagram: 05/27/18 0506 05/27/18 0506 Results 24hrs Laboratory Tests Test 05/26/18 17:11 05/26/18 21:22 05/27/18 02:07 05/27/18 05:06 Bedside Glucose 181 217 187 White Blood Count 5.8 Red Blood Count 4.41 Hemoglobin 12.0 Hematocrit 39.2 Mean Corpuscular 88.9 Volume Mean Corpuscular 27.2 L Hemoglobin Mean Corpuscular 30.6 L Hemoglobin Concent Red Cell 13.9 Distribution Width Platelet Count 200 Mean Platelet Volume 11.0 H Immature 0.200 Granulocytes % Neutrophils % 51.5 Lymphocytes % 36.1 Monocytes % 10.0 Eosinophils % 1.7 Basophils % 0.5 Nucleated Red Blood 0.0 Cells % Immature 0.010 Granulocytes # Neutrophils # 3.0 Lymphocytes # 2.1 Monocytes # 0.6 Eosinophils # 0.1 Basophils # 0.0 Nucleated Red Blood 0.0 Cells # Sodium Level 141 Potassium Level 4.4 Chloride Level 101 Carbon Dioxide Level 30 Anion Gap 10 Blood Urea Nitrogen 22 H Creatinine 0.66 Est Glomerular > 60 Filtrat Rate mL/min Glucose Level 185 Calcium Level 9.5 Phosphorus Level 3.7 Magnesium Level 2.0 Test 05/27/18 08:00 05/27/18 11:53 Bedside Glucose 147 198 Exam/Review of Systems Exam Vitals Vital Signs Date Temp Pulse Resp B/P (MAP) Pulse Ox O2 O2 Flow FiO2 Time Delivery Rate 05/27/18 73 13:43 05/27/18 98.6 104/62 97 Room Air 11:19 (76) 05/27/18 18 07:14 Intake and Output 05/26/18 05/26/18 05/27/18 1515:00 23:00 07:00 IntakeIntake Total 1080 ml 400 ml OutputOutput Total 800 ml BalanceBalance 280 ml 400 ml Results Results 24hrs Laboratory Tests Test 05/26/18 17:11 05/26/18 21:22 05/27/18 02:07 05/27/18 05:06 Bedside Glucose 181 217 187 White Blood Count 5.8 Red Blood Count 4.41 Hemoglobin 12.0 Hematocrit 39.2 Mean Corpuscular 88.9 Volume Mean Corpuscular 27.2 L Hemoglobin Mean Corpuscular 30.6 L Hemoglobin Concent Red Cell 13.9 Distribution Width Platelet Count 200 Mean Platelet Volume 11.0 H Immature 0.200 Granulocytes % Neutrophils % 51.5 Lymphocytes % 36.1 Monocytes % 10.0 Eosinophils % 1.7 Basophils % 0.5 Nucleated Red Blood 0.0 Cells % Immature 0.010 Granulocytes # Neutrophils # 3.0 Lymphocytes # 2.1 Monocytes # 0.6 Eosinophils # 0.1 Basophils # 0.0 Nucleated Red Blood 0.0 Cells # Sodium Level 141 Potassium Level 4.4 Chloride Level 101 Carbon Dioxide Level 30 Anion Gap 10 Blood Urea Nitrogen 22 H Creatinine 0.66 Est Glomerular > 60 Filtrat Rate mL/min Glucose Level 185 Calcium Level 9.5 Phosphorus Level 3.7 Magnesium Level 2.0 Test 05/27/18 08:00 05/27/18 11:53 Bedside Glucose 147 198 Medications Medication Current Medications IV Flush (NS 3 ml) 3 ml PER PROTOCOL IV ; Start 05/23/18 at 06:00 Ondansetron HCl (Zofran Inj) 4 mg Q6H PRN IV NAUSEA/VOMITING; Start 05/23/18 at 06:00 Nitroglycerin (Nitroglycerin (Sl Tab) 0.4 Mg) 1 tab Q5M PRN SL .CHEST PAIN; Start 05/23/18 at 06:00 Acetaminophen (Tylenol Tab) 650 mg Q6H PRN PO .PAIN 1-3 OR TEMP Last administered on 05/25/18at 00:48; Admin Dose 650 MG; Start 05/23/18 at 06:00 Morphine Sulfate (morphine) 1 mg Q4H PRN IV .PAIN 7-10; Start 05/23/18 at 06:00 Enalapril Maleate (Vasotec) 20 mg DAILY PO Last administered on 05/27/18 08:37; Admin Dose 20 MG; Start 05/23/18 at 09:00 Aspirin (Aspirin) 81 mg DAILY PO Last administered on 05/27/18 08:37; Admin Dose 81 MG; Start 05/24/18 at 09:00 Atorvastatin Calcium (Lipitor) 40 mg DAILY@21 PO Last administered on 05/26/18 21:24; Admin Dose 40 MG; Start 05/23/18 at 21:00 Enoxaparin Sodium (Lovenox) 40 mg DAILY SC Last administered on 05/27/18 08:48; Admin Dose 40 MG; Start 05/23/18 at 11:00 Insulin Aspart (Novolog Insulin Pen) 4 unit WITH MEALS SC Last administered on 05/27/18 08:05; Admin Dose 4 UNIT; Start 05/23/18 at 12:00 Insulin Aspart (Novolog Insulin Pen) NOVOLOG *MILD* ALGORITHM WITH MEALS BEDTIME SC Last administered on 05/27/18 08:05; Admin Dose 1 UNIT; Start 05/23/18 at 12:00 Miscellaneous Information 1 ea NOTE XX ; Start 05/23/18 at 11:00 Glucose (Glutose) 15 gm Q15M PRN PO DECREASED GLUCOSE; Start 05/23/18 at 11:00 Glucose (Glutose) 22.5 gm Q15M PRN PO DECREASED GLUCOSE; Start 05/23/18 at 11:00 Dextrose (D50w Syringe) 25 ml Q15M PRN IV DECREASED GLUCOSE; Start 05/23/18 at 11:00 Dextrose (D50w Syringe) 50 ml Q15M PRN IV DECREASED GLUCOSE; Start 05/23/18 at 11:00 Glucagon (Glucagen) 1 mg Q15M PRN IM DECREASED GLUCOSE; Start 05/23/18 at 11:00 Glucose (Glutose) 15 gm Q15M PRN BUCCAL DECREASED GLUCOSE; Start 05/23/18 at 11:00 Diagnostic Test (Pha) (Accu-Chek) 1 ea 02 XX ; Start 05/24/18 at 02:00 Insulin Glargine (Lantus) 8 units DAILY@2000 SC Last administered on 05/26/18 21:34; Admin Dose 8 UNITS; Start 05/24/18 at 20:00 Carvedilol (Coreg) 6.25 mg BID PO Last administered on 05/27/18at 08:36; Admin Dose 6.25 MG; Start 05/25/18 at 12:30 Furosemide (Lasix) 40 mg DAILY PO Last administered on 05/27/18at 08:36; Admin Dose 40 MG; Start 05/27/18 at 09:00 MILANA LI MD May 27, 2018 14:13
[2018-05-27] MEDS ORDERED: MIDAZOLAM 1 MG/ML 2 ML INJ ONE (14:37)
[2018-05-27] MEDS ORDERED: FENTAnyl 50 MCG/ML VIAL ONE (14:37)
[2018-05-27] MEDS ORDERED: HEPARIN 1000 UNITS/ML 10 ML INJ ONE (14:37)
[2018-05-27] MEDS ORDERED: NITROGLYCERIN (IC) 100 MCG/ML INJ ONE (14:38)
[2018-05-27] MEDS ORDERED: VERAPAMIL 5 MG INJ ONE (14:38)
--- NOTE | 2018-05-27 14:42 | OPR ---
Date/Time of Note Date/Time of Note DATE: 05/27/18 TIME: 14:39 Operative Report Preoperative Diagnosis dilated cardiomyopathy, chest pain, r/o CAD Postoperative Diagnosis same, no CAD Operation/Procedure Performed see details Surgeon see signature line [place] [employer] Supervisor none Anesthesia Type: moderate sedation Estimated Blood Loss: minimal Transfusion none Specimen none Grafts/Implants none Complications none Procedure Description Procedure Date:05/27/18 Centrifugal Screen Tender/surgeon:Jono Edwards MD. Procedures Performed: 1)Left heart catheterization with selective left and right coronary angiography. 2)Left ventricle angiography Pre-operative Diagnosis: dilated cardiomyopathy, chest pain, r/o CAD Post-operative Diagnosis:same, no CAD Indications:57 yo F with new diagnosis of dilated cardiomyopathy with EF 20-25%. Also with chest pain and DM. Eval for CAD Description of Procedure: After informed consent, the patient was brought to the cardiac catheterization lab. The procedure site was prepped and draped in usual manner. The patient was premedicated with versed 1 mg and fentanyl 25 mcg. 2 mL lidocaine was injected into the right wrist. Next using the posterior wall technique, the 6/5 maori sheath was inserted into the right radial artery. Next using the JL3.5 and JR4, selective angiography of the left and right coronary arteries were obtained. The pigtail was then advanced into the ventricle and hemodynamics obtained. Left ventricle angiography was obtained. Next all equipment was removed and hemostasis was obtained by TR band. Findings: Anatomy/Hemodynamics: Left main:luminal irregularities LAD:luminal irregularities Diagonal:luminal irregularities Circumflex:luminal irregularities Obtuse marginal:luminal irregularities RCA:luminal irregularities PDA:luminal irregularities PLV:luminal irregularities LV angiography:EF 20-25%, 2+ MR, dilated ventricle with severe global hypokinesis LV-Ao: no gradient LVEDP:20 mmHg Contrast used:55 mL Fluoroscopy time:3.4 min Estimated blood loss<10 mL. Specimen: none Grafts/implants: none Complications: none Assessment: Dilated nonischemic cardiomyopathy: EF 20-25% Paroxysmal afib DM Chest pain: possibly from decompensated CHF. No CAD Plan: -medical management of above. See consult follow up for management JONO EDWARDS May 27, 2018 14:42
[2018-05-27] MEDS: INSULIN GLARGINE [LANTus] (100 UNITS/ML) SYG SC SCH (20:18)
[2018-05-28] VITALS (9 sets, daily range): BP systolic 90–114; BP diastolic 58–76; PULSE 71–83; RESP 17–18
[2018-05-28] MEDS: ACETAMINOPHEN 325 MG TAB PO PRN (01:21)
[2018-05-28] MEDS: ACCUCHECK AT 2AM (Patients on SS coverage) XX SCH (02:00)
[2018-05-28] MEDS: INSULIN ASPART [NOVOLOG] 3 ML PEN SC SCH ×6 (07:35→17:17)
[2018-05-28] MEDS: FUROSEMIDE 40 MG TAB PO SCH (08:34)
[2018-05-28] MEDS ORDERED: APIXABAN 5 MG TABLET PO SCH (09:00)
[2018-05-28] MEDS ORDERED: SPIRONOLACTONE 25 MG TAB PO SCH (09:00)
[2018-05-28] MEDS: ENALAPRIL 20 MG TAB PO SCH (11:05)
--- NOTE | 2018-05-28 12:03 | CONS ---
Assessment/Plan Assessment/Plan Hospital Course (Demo Recall) Acute on chronic systolic heart failure: grossly decompensated on admission, now ~euvolemic Paroxysmal atrial fibrillation: CHADSVASC is 3 and will need chronic anticoagula tion Nonischemic Cardiomyopathy: EF 20-25%. Cardiac cath 05/27/18 with normal co ronaries Chest pain:from elevated end diastolic pressure from decompensated CHF. Resolved DM -ok for d/c after LifeVest is placed d/c with below meds -coreg 12.5mg BID (new med) -lasix 40mg PO daily (increased from 20mg daily) -Eliquis 5mg BID (new med) -lipitor 20mg -taking lisinopril 10mg at home (continue) -taking aldactone 25mg at home (continue) -NO ASA Consultation Date/Type/Reason Admit Date/Time May 23, 2018 at 11:15 Initial Consult Date 05/23/18 Type of Consult Cardiology Date/Time of Note DATE: 05/28/18 TIME: 11:55 24 HR Interval Summary Free Text/Dictation s/p cath yesterday, Normal coros. Started on Eliquis. No complaints. Awaiting Life Vest Exam/Review of Systems Exam Vitals Vital Signs Date Temp Pulse Resp B/P (MAP) Pulse Ox O2 O2 Flow FiO2 Time Delivery Rate 05/28/18 98.3 75 18 90/58 (69) 97 11:17 05/27/18 Nasal 1.0 23:15 Cannula Intake and Output 05/27/18 05/27/18 05/28/18 1515:00 23:00 07:00 IntakeIntake Total 200 ml 500 ml BalanceBalance 200 ml 500 ml Constitutional: alert, oriented Psych: no complaints, nl mood/affect Head: normocephalic, atraumatic Neck: No jvd Respiratory: clear to auscultation; No crackles/rales Cardiovascular: regular rate and rhythm, edema (trace-1+) Gastrointestinal: soft, non-tender; No distended Neurological: nl mental status, nl speech Results Result Diagram: 05/28/18 0609 05/28/18 0609 Results 24hrs Laboratory Tests Test 05/27/18 16:27 05/27/18 17:49 05/27/18 20:15 05/28/18 02:57 Bedside Glucose 129 126 227 H 241 H Test 05/28/18 06:09 05/28/18 07:31 05/28/18 11:05 White Blood Count 6.1 Red Blood Count 4.15 L Hemoglobin 11.4 L Hematocrit 36.0 L Mean Corpuscular 86.7 Volume Mean Corpuscular 27.5 L Hemoglobin Mean Corpuscular 31.7 L Hemoglobin Concent Red Cell 14.3 Distribution Width Platelet Count 192 Mean Platelet Volume 11.2 H Immature 0.200 Granulocytes % Neutrophils % 48.9 Lymphocytes % 38.7 Monocytes % 10.5 Eosinophils % 1.0 Basophils % 0.7 Nucleated Red Blood 0.0 Cells % Immature 0.010 Granulocytes # Neutrophils # 3.0 Lymphocytes # 2.4 Monocytes # 0.6 Eosinophils # 0.1 Basophils # 0.0 Nucleated Red Blood 0.0 Cells # Sodium Level 141 Potassium Level 4.2 Chloride Level 105 Carbon Dioxide Level 26 Anion Gap 10 Blood Urea Nitrogen 20 Creatinine 0.59 Est Glomerular > 60 Filtrat Rate mL/min Glucose Level 164 Calcium Level 9.3 Phosphorus Level 4.3 Magnesium Level 2.0 Total Bilirubin 0.4 Direct Bilirubin 0.00 Indirect Bilirubin 0.4 Aspartate Amino 24 Transf (AST/SGOT) Alanine 25 Aminotransferase (AL T/SGPT) Alkaline Phosphatase 83 Total Protein 6.8 Albumin 3.7 Globulin 3.10 Albumin/Globulin 1.19 Ratio Thyroid Stimulating 1.090 Hormone (TSH) Bedside Glucose 141 257 H Medications Medication Current Medications IV Flush (NS 3 ml) 3 ml PER PROTOCOL IV ; Start 05/23/18 at 06:00 Ondansetron HCl (Zofran Inj) 4 mg Q6H PRN IV NAUSEA/VOMITING; Start 05/23/18 at 06:00 Nitroglycerin (Nitroglycerin (Sl Tab) 0.4 Mg) 1 tab Q5M PRN SL .CHEST PAIN; Start 05/23/18 at 06:00 Acetaminophen (Tylenol Tab) 650 mg Q6H PRN PO .PAIN 1-3 OR TEMP Last administered on 05/28/18at 01:21; Admin Dose 650 MG; Start 05/23/18 at 06:00 Morphine Sulfate (morphine) 1 mg Q4H PRN IV .PAIN 7-10; Start 05/23/18 at 06:00 Enalapril Maleate (Vasotec) 20 mg DAILY PO Last administered on 05/27/18 08:3 7; Admin Dose 20 MG; Start 05/23/18 at 09:00 Insulin Aspart (Novolog Insulin Pen) 4 unit WITH MEALS SC Last administered on 05/28/18 11:10; Admin Dose 4 UNIT; Start 05/23/18 at 12:00 Insulin Aspart (Novolog Insulin Pen) NOVOLOG *MILD* ALGORITHM WITH MEALS BEDTIME SC Last administered on 05/28/18 11:10; Admin Dose 3 UNIT; Start 05/23/18 at 12:00 Miscellaneous Information 1 ea NOTE XX ; Start 05/23/18 at 11:00 Glucose (Glutose) 15 gm Q15M PRN PO DECREASED GLUCOSE; Start 05/23/18 at 11:00 Glucose (Glutose) 22.5 gm Q15M PRN PO DECREASED GLUCOSE; Start 05/23/18 at 11:00 Dextrose (D50w Syringe) 25 ml Q15M PRN IV DECREASED GLUCOSE; Start 05/23/18 at 11:00 Dextrose (D50w Syringe) 50 ml Q15M PRN IV DECREASED GLUCOSE; Start 05/23/18 at 11:00 Glucagon (Glucagen) 1 mg Q15M PRN IM DECREASED GLUCOSE; Start 05/23/18 at 11:00 Glucose (Glutose) 15 gm Q15M PRN BUCCAL DECREASED GLUCOSE; Start 05/23/18 at 11:00 Diagnostic Test (Pha) (Accu-Chek) 1 ea 02 XX ; Start 05/24/18 at 02:00 Insulin Glargine (Lantus) 8 units DAILY@2000 SC Last administered on 05/27/18at 20:18; Admin Dose 8 UNITS; Start 05/24/18 at 20:00 Furosemide (Lasix) 40 mg DAILY PO Last administered on 05/28/18 08:34; Admin Dose 40 MG; Start 05/27/18 at 09:00 Carvedilol (Coreg) 12.5 mg BID PO Last administered on 05/28/18 08:35; Admin Dose 12.5 MG; Start 05/27/18 at 21:00 Spironolactone (Aldactone) 25 mg DAILY PO Last administered on 05/28/18 08:35; Admin Dose 25 MG; Start 05/28/18 at 09:00 Apixaban (Eliquis) 5 mg BID PO Last administered on 05/28/18at 08:34; Admin Dose 5 MG; Start 05/28/18 at 09:00 UGERA ESPINAL May 28, 2018 12:03
--- NOTE | 2018-05-28 17:28 | PDOCDIS ---
Discharge Instructions CONDITION [id number] Patient Condition: [id number] Stable HOME CARE INSTRUCTIONS: [id number] Diet Instructions: Tescx7p Low Fat /Cholesterol ACTIVITY: [id number] Activity Restrictions: Bkluy4m Slowly Increase Activity Do not Drive FOLLOW UP/APPOINTMENTS Follow-up Plan appt Pcp 1wk Dr Edwards 1-2wks MILANA LI MD May 28, 2018 17:28
--- NOTE | 2018-05-28 17:28 | DS ---
Date/Time of Note Date/Time of Note DATE: 05/28/18 TIME: 17:25 Discharge Summary Admission/Discharge Info Admit Date/Time May 23, 2018 at 11:15 Discharge Date/Time Patient Condition: Stable Consults Dr Edwards Procedures Foreign Language Teacher/surgeon:Jono Edwards MD. Procedures Performed: 1)Left heart catheterization with selective left and right coronary angiography. 2)Left ventricle angiography Pre-operative Diagnosis: dilated cardiomyopathy, chest pain, r/o CAD Post-operative Diagnosis:same, no CAD Indications:57 yo F with new diagnosis of dilated cardiomyopathy with EF 20-25%. Also with chest pain and DM. Eval for CAD Description of Procedure: After informed consent, the patient was brought to the cardiac catheterization lab. The procedure site was prepped and draped in usual manner. The patient was premedicated with versed 1 mg and fentanyl 25 mcg. 2 mL lidocaine was injected into the right wrist. Next using the posterior wall technique, the 6/5 ghanaian sheath was inserted into the right radial artery. Next using the JL3.5 and JR4, selective angiography of the left and right coronary arteries were obtained. The pigtail was then advanced into the ventricle and hemodynamics obtained. Left ventricle angiography was obtained. Next all equipment was removed and hemostasis was obtained by TR band. Findings: Anatomy/Hemodynamics: Left main:luminal irregularities LAD:luminal irregularities Diagonal:luminal irregularities Circumflex:luminal irregularities Obtuse marginal:luminal irregularities RCA:luminal irregularities PDA:luminal irregularities PLV:luminal irregularities LV angiography:EF 20-25%, 2+ MR, dilated ventricle with severe global hypokinesis LV-Ao: no gradient LVEDP:20 mmHg Contrast used:55 mL Fluoroscopy time:3.4 min Assessment: Dilated nonischemic cardiomyopathy: EF 20-25% Paroxysmal afib DM Chest pain: possibly from decompensated CHF. No CAD Plan: -medical management of above. See consult follow up for management Hx of Present Illness 57-year-old female admitted with chest pain dyspnea Hospital Course Hospitalist coverage/hospital course: Admitted and evaluated for ACS. Ruled out for ACS by enzymes. seen by cardiology. Cardiac cath did not show any ischemic etiology. EF was low. Therefore the scenario of dilated nonischemic cardiomyopathy remains. Patient has received a LifeVest. Presently stable and fit for discharge to follow-up with cardiology. A/P 1. Chest pain/abn EKG, no ACS. 2. Cardiomyopathy EF of 20%. non ischemic dilated cardiomyopathy 3. Type 2 dm 4. Metabolic syndrome 5. Hypertension 6. Dyslipidemia 7. Nsvt, treat #1/2. sp LifeVest. Home Meds Active Scripts Benzonatate* (Tessalon Perle*) 100 Mg Capsule, 100 MG PO Q8H PRN for COUGH, #30 CAP Prov:MARTINA GTZ PA-C 03/10/18 Ibuprofen* (Motrin*) 600 Mg Tab, 600 MG PO Q6H PRN for PAIN AND OR ELEVATED TEMP, #30 TAB Prov:DONNELL MAYNARD MD 06/30/16 Reported Medications Ergocalciferol (Vitamin D2) (VITAMIN D2) 50,000 Unit Capsule, 12124 UNIT PO QSUN, CAP 05/23/18 Lisinopril* (Lisinopril*) 10 Mg Tablet, 10 MG PO BID, #30 TAB 05/23/18 Furosemide* (Furosemide*) 20 Mg Tablet, 20 MG PO BID, #30 TAB 05/23/18 Enalapril Maleate* (Enalapril Maleate*) 20 Mg Tablet, 20 MG PO DAILY, TAB 06/29/16 Atorvastatin Calcium (Atorvastatin Calcium) 20 Mg Tablet, 20 MG PO DAILY 06/27/15 Metformin* (Glucophage*) 1,000 Mg Tablet, 1000 MG PO BID, TAB 05/17/14 Glipizide* (Glucotrol*) 10 Mg Tablet, 10 MG PO BID 03/12/13 Discontinued Scripts Levofloxacin* (Levaquin*) 500 Mg Tablet, 500 MG PO DAILY for 7 Days, TAB Prov:MARTINA GTZ PA-C 03/10/18 Primary Care Provider Not On Staff Doctor Time spent on discharge: < 30 minutes Pending Labs Laboratory Tests Test 05/27/18 17:49 05/27/18 20:15 05/28/18 02:57 05/28/18 06:09 Bedside 126 227 241 Glucose mg/dL (70-220) mg/dL (70-220) mg/dL (70-220) White Blood 6.1 Count 10^3/ul (4.8-1 0.8) Red Blood 4.15 Count 10^6/ul (4.20- 5.40) Hemoglobin 11.4 g/dl (12.0-16. 0) Hematocrit 36.0 % (37.0-47.0) Mean 86.7 Corpuscular fl (82.0-101.0 Volume ) Mean 27.5 Corpuscular pg (29.0-33.0) Hemoglobin Mean 31.7 Corpuscular g/dl (32.0-37. Hemoglobin Conc 0) ent Red Cell 14.3 Distribution % (11.5-14.5) Width Platelet Count 192 10^3/UL (140-4 15) Mean Platelet 11.2 Volume fl (7.4-10.4) Immature 0.200 Granulocytes % % (0.001-0.429 ) Neutrophils % 48.9 % (39.0-77.0) Lymphocytes % 38.7 % (15.0-51.0) Monocytes % 10.5 % (0.0-11.0) Eosinophils % 1.0 % (0.0-7.0) Basophils % 0.7 % (0.0-2.0) Nucleated Red 0.0 Blood Cells % /100WBC (0.0-0 .0) Immature 0.010 Granulocytes # 10^3/ul (0.0-0 .031) Neutrophils # 3.0 10^3/ul (1.6-7 .5) Lymphocytes # 2.4 10^3/ul (0.8-2 .9) Monocytes # 0.6 10^3/ul (0.3-0 .9) Eosinophils # 0.1 10^3/ul (0.0-0 .5) Basophils # 0.0 10^3/ul (0.0-0 .1) Nucleated Red 0.0 Blood Cells # 10^3/ul (0.0-0 .0) Sodium Level 141 mmol/L (135-14 4) Potassium 4.2 Level mmol/L (3.5-5. 1) Chloride Level 105 mmol/L (97-110 ) Carbon Dioxide 26 Level mmol/L (21-31) Anion Gap 10 (5-13) Blood Urea 20 Nitrogen mg/dl (7-20) Creatinine 0.59 mg/dl (0.44-1. 00) Est Glomerular > 60 Filtrat mL/min (>60) Rate mL/min Glucose Level 164 mg/dl (70-220) Calcium Level 9.3 mg/dl (8.4-10. 2) Phosphorus 4.3 Level mg/dl (2.5-4.9 ) Magnesium 2.0 Level mg/dl (1.7-2.5 ) Total 0.4 Bilirubin mg/dl (0.2-1.3 ) Direct 0.00 Bilirubin mg/dl (0.00-0. 20) Indirect 0.4 Bilirubin mg/dl (0-1.1) Aspartate Amino 24 Transf (AST/SGO IU/L (15-46) T) Alanine 25 Aminotransferas IU/L (13-69) e (ALT/SGPT) Alkaline 83 Phosphatase IU/L (42-121) Total Protein 6.8 g/dl (6.1-8.1) Albumin 3.7 g/dl (3.3-4.9) Globulin 3.10 g/dl (1.3-3.2) Albumin/Globuli 1.19 n Ratio Thyroid 1.090 Stimulating MIU/L (0.465-4 Hormone (TSH) .680) Test 05/28/18 07:31 05/28/18 11:05 05/28/18 17:14 Bedside 141 257 204 Glucose mg/dL (70-220) mg/dL (70-220) mg/dL (70-220) MILANA LI MD May 28, 2018 17:27
[2018-05-28] MEDS ORDERED: APIX5TAB PO (17:30)
[2018-05-28] MEDS ORDERED: ACET325T33 PO (17:30)
[2018-05-28] MEDS ORDERED: CARV12.579 PO (17:30)
[2018-05-28] MEDS ORDERED: SPIR25TA PO (17:30)
[2018-05-28] MEDS ORDERED: FURO40TA4 PO (17:34)
[2018-05-28] MEDS ORDERED: THIA50TA7 PO (17:35)
[2018-05-29] MEDS ORDERED: LISINOPRIL 10 MG TAB PO SCH (09:00)
== END 2018-05-28 19:11 | disposition home or self-care (01) | DRG 287 ==
LOC: E/R 03:20 → 6WM 05:45 → OBSVTOIN 11:15 → TEL 05-27 17:12
PROVIDERS: ADMIT Family Medicine; ATTEND Internal Medicine
PROC: B211YZZ Fluoroscopy of Multiple Coronary Arteries using Other Contrast (ICD-10-PCS; 2018-05-27)
PROC: B215YZZ Fluoroscopy of Left Heart using Other Contrast (ICD-10-PCS; 2018-05-27)
PROC: 4A023N7 Measurement of Cardiac Sampling and Pressure, Left Heart, Percutaneous Approach (ICD-10-PCS; principal; 2018-05-27 15:00)
DX: I11.0 Hypertensive heart disease with heart failure (principal); I50.23 Acute on chronic systolic (congestive) heart failure; E11.9 Type 2 diabetes mellitus without complications; I27.22 Pulmonary hypertension due to left heart disease; I48.0 Paroxysmal atrial fibrillation; I42.0 Dilated cardiomyopathy; R07.9 Chest pain, unspecified; E78.5 Hyperlipidemia, unspecified; E88.81 Metabolic syndrome and other insulin resistance; E66.9 Obesity, unspecified; I27.20 Pulmonary hypertension, unspecified; Z68.30 Body mass index [BMI] 30.0-30.9, adult
CPT/HCPCS: 36415; 71045; 80048; 80053; 80061; 82550; 82553; 82962; 83036; 83735; 83880; 84100; 84443; 84484; 85025; 93005; 93306; 93458; 96374; G0378; J1644; J1650; J1815; J1940; J2250; J3010; J3475

== ENCOUNTER 2018-07-06 14:28 | Emergency (ER) | payer OTHER ==
[~2018-07-06] VITALS: Ht 152.4 cm; Wt 87.5 kg
[~2018-07-06 14:28] MED LIST changes: +ACET325T33 PO; +APIX5TAB PO; +CARV12.579 PO; -ENAL20TA PO; +ERGO500013 PO; +FURO40TA4 PO; -IBUP-1542 PO; -LEVO500T48 PO; +LISI10TA2 PO; +SPIR25TA PO; +THIA50TA7 PO
[2018-07-06 14:36] VITALS: Ht 152.4 cm; Wt 87.5 kg
[2018-07-06] MEDS ORDERED: CEFTRIAXONE 1 GM/50 ML (PMX) 50 ML IVPB STA (15:55)
--- NOTE | 2018-07-06 16:26 | ERD ---
ER Documentation Chief Complaint Chief Complaint c/o cough, SOB while flat in bed, Fever. Has some type of heart mon device HPI This is a 58-year-old female who has had a cough for about a week and a half with occasional productive sputum he developed a fever today. She also has some diffuse body aches and myalgias. No shortness of breath no abdominal pain vomiting diarrhea no chest pain no shortness of breath at rest or exertion ROS All systems reviewed and are negative except as per history of present illness. Medications Home Meds Active Scripts Furosemide* (Furosemide*) 40 Mg Tablet, 40 MG PO DAILY for 15 Days, #15 TAB Prov:MILANA LI MD 05/28/18 Spironolactone* (Aldactone*) 25 Mg Tablet, 25 MG PO DAILY for 14 Days, #15 TAB Prov:MILANA LI MD 05/28/18 Carvedilol* (Carvedilol*) 12.5 Mg Tablet, 12.5 MG PO BID for 14 Days, #30 TAB Prov:MILANA LI MD 05/28/18 Apixaban* (Eliquis*) 5 Mg Tablet, 5 MG PO BID for 30 Days, #30 TAB 1 Refill Prov:MILANA LI MD 05/28/18 Reported Medications Lisinopril* (Lisinopril*) 10 Mg Tablet, 10 MG PO BID, #30 TAB 07/06/18 Metformin Hcl* (Metformin Hcl*) 1,000 Mg Tablet, 1000 MG PO WITH BREAKFAST DINNE, #60 TAB 07/06/18 Glipizide* (Glipizide*) 10 Mg Tablet, 10 MG PO AC BREAKFAST DINNER, TAB 07/06/18 Atorvastatin Calcium* (Atorvastatin Calcium*) 20 Mg Tablet, 20 MG PO QHS, #30 TAB 07/06/18 Discontinued Reported Medications Ergocalciferol (Vitamin D2) (VITAMIN D2) 50,000 Unit Capsule, 05310 UNIT PO QSUN, CAP 05/23/18 Lisinopril* (Lisinopril*) 10 Mg Tablet, 10 MG PO BID, #30 TAB 05/23/18 Atorvastatin Calcium (Atorvastatin Calcium) 20 Mg Tablet, 20 MG PO DAILY 06/27/15 Metformin* (Glucophage*) 1,000 Mg Tablet, 1000 MG PO BID, TAB 05/17/14 Glipizide* (Glucotrol*) 10 Mg Tablet, 10 MG PO BID 03/12/13 Discontinued Scripts Thiamine* (Thiamine*) 50 Mg Tablet, 100 MG PO DAILY for 30 Days, #30 TAB Prov:MILANA LI MD 05/28/18 Acetaminophen* (Tylenol*) 325 Mg Tablet, 650 MG PO Q6H PRN for .PAIN 1-3 OR TEMP for 5 Days, TAB Prov:MILANA LI MD 05/28/18 Benzonatate* (Tessalon Perle*) 100 Mg Capsule, 100 MG PO Q8H PRN for COUGH, #30 CAP Prov:MARTINA GTZ PA-C 03/10/18 Allergies Allergies: Coded Allergies: azithromycin (Unverified Allergy, Unknown, DRY MOUTH,HARD TO SWALLOW, 07/06/18) sulfamethoxazole (Unverified Allergy, Unknown, HARD TO SWALLOW, DRY MOUTH, 07/06/18) trimethoprim (Unverified Allergy, Unknown, HARD TO SWALLOW, DRY MOUTH, 07/06/18) PMhx/Soc History of Surgery: Yes (tubal ligation, appendectomy) Anesthesia Reaction: No Hx Neurological Disorder: No Hx Respiratory Disorders: No Hx Cardiac Disorders: Yes (cardiomyopathy) Hx Psychiatric Problems: No Hx Miscellaneous Medical Probl: No Hx Alcohol Use: No Hx Substance Use: No Hx Tobacco Use: No FmHx Family History: No coronary disease Physical Exam Vitals Vital Signs Date Temp Pulse Resp B/P (MAP) Pulse Ox O2 O2 Flow FiO2 Time Delivery Rate 07/06/18 98.3 103 20 127/91 98 Room Air 17:00 (103) 07/06/18 102.9 102 22 129/79 96 14:36 (96) Physical Exam Const: Well-developed, well-nourished Head: Atraumatic, normocephalic Eyes: Normal Conjunctiva, PERRLA, EOMI, normal sclera, no nystagmus ENT: Normal External Ears, Nose and Mouth, moist mucus membranes. Neck: Full range of motion. No meningismus, no lymphadenopathy. Resp: Clear to auscultation bilaterally, no wheezing, rhonchi, rales Cardio: Regular rate and rhythm, no murmurs, S1 S2 present Abd: Soft, non tender x 4, non distended. Normal bowel sounds, no guarding or rebound, no pulsitile abdominal masses or bruits Skin: No petechiae or rashes, no ecchymosis , no maculopapular rash Back: No midline or flank tenderness Ext: No cyanosis, or edema, FROM x 4, normal inspection, neurovascularly intact x 4 Neur: Awake and alert, STR 5/5 x 4, sensation intact x 4, no focal findings, cerebellum intact Psych: Normal Mood and Affect Result Diagram: 07/06/18 1600 07/06/18 1600 Results 24 hrs Laboratory Tests Test 07/06/18 16:00 07/06/18 17:27 White Blood Count 8.9 10^3/ul Red Blood Count 4.72 10^6/ul Hemoglobin 12.9 g/dl Hematocrit 40.3 % Mean Corpuscular Volume 85.4 fl Mean Corpuscular Hemoglobin 27.3 pg Mean Corpuscular Hemoglobin Concent 32.0 g/dl Red Cell Distribution Width 14.8 % Platelet Count 212 10^3/UL Mean Platelet Volume 11.4 fl Immature Granulocytes % 0.500 % Neutrophils % % Segmented Neutrophils % (Manual) 71 % Band Neutrophils % (Manual) 6 % Lymphocytes % % Lymphocytes % (Manual) 15 % Monocytes % % Monocytes % (Manual) 7 % Eosinophils % % Eosinophils % (Manual) 1 % Basophils % % Nucleated Red Blood Cells % 0.0 /100WBC Immature Granulocytes # 0.040 10^3/ul Neutrophils # 10^3/ul Neutrophils # (Manual) 6.4 10^3/ul Band Neutrophils # 0.5 10^3/ul Lymphocytes (Manual) 1.3 10^3/ul Lymphocytes # 10^3/ul Monocytes # 10^3/ul Monocytes # (Manual) 0.6 10^3/ul Eosinophils # 10^3/ul Basophils # 10^3/ul Nucleated Red Blood Cells # 10^3/ul Platelet Estimate NORMAL Poikilocytosis 1+ Anisocytosis 3+ Microcytosis 3+ Sodium Level 139 mmol/L Potassium Level 5.2 mmol/L Chloride Level 104 mmol/L Carbon Dioxide Level 24 mmol/L Anion Gap 11 Blood Urea Nitrogen 17 mg/dl Creatinine 0.67 mg/dl Est Glomerular Filtrat Rate mL/min > 60 mL/min Glucose Level 116 mg/dl Calcium Level 9.6 mg/dl Troponin I 0.013 ng/ml POC Beta HCG, Qualitative POSITIVE Current Medications Medications Dose Sig/Dilip Start Time Status Last (Trade) Ordered Route PRN Stop Time Admin Dose Reason Admin Ceftriaxone 50 ml @ ONCE STAT 07/06/18 DC 07/06/18 Sodium 100 mls/hr IVPB 15:55 07/06/18 16:21 16:24 Furosemide 40 mg ONCE ONCE 07/06/18 DC 07/06/18 (Lasix) IV 17:30 07/06/18 17:35 17:31 Procedures/MDM PROCEDURE: XR Chest. CLINICAL INDICATION: Dyspnea. TECHNIQUE: Single frontal chest x-ray. COMPARISON: DR CHEST 05/23/2018; CR CHEST 06/27/2015; CR CHEST 03/12/2013 FINDINGS: The lungs are remarkable for mild vascular congestion and volume overload. No focal opacification is seen. The cardiomediastinal silhouette is moderately enlarged. The osseous structures are unremarkable. Wearable cardiac def ibrillator (LifeVest) is noted. IMPRESSION: 1. Moderate cardiomegaly with mild CHF. 2. Wearable external cardiac defibrillator. RPTAT: PP .Dwight Gomez MD, MD Date Time Electronically viewed and signed by .Dwight Gomez MD, MD on 07/06/2018 17:00 .B/ CC: PEARL MENESES DO [id number] The patient does not have pneumonia she has a negative flu swab. The patient is going to be treated with a diagnosis of bronchitis. She received IV antibiotics here. Her O2 sats are adequate on room air at 96 and higher. She had some mild vascular congestion on her chest x-ray and after reviewing her medical records she does have a dilated cardiomyopathy with the EF of 20-25%. She is telling me that she is not short of breath at rest or walking. I will give her a dose of Lasix here 40 mg IV before discharge. I will discharge home with albuterol inhaler, prednisone and Levaquin Departure Diagnosis: Primary Impression: Bronchitis Condition: Stable PEARL MENESES DO Jul 06, 2018 16:26
[2018-07-06] MEDS ORDERED: ATOR20TA38 PO (16:38)
[2018-07-06] MEDS ORDERED: METF100010 PO (16:39)
[2018-07-06] MEDS ORDERED: GLIP10TA14 PO (16:39)
[2018-07-06] MEDS ORDERED: LISI10TA2 PO (16:40)
[2018-07-06] MEDS ORDERED: FUROSEMIDE 40 MG INJ IV ONE (17:30)
[2018-07-06] MEDS ORDERED: ALBU8.5H8 INH (18:22)
[2018-07-06] MEDS ORDERED: PRED20TA PO (18:22)
[2018-07-06] MEDS ORDERED: LEVO500T48 PO (18:22)
[2018-07-06 18:48] VITALS: BP 114/82; PULSE 107; RESP 19
== END 2018-07-06 18:48 | disposition home or self-care (01) ==
LOC: E/R 14:28
DX: J20.9 Acute bronchitis, unspecified (principal); E11.9 Type 2 diabetes mellitus without complications; Z79.01 Long term (current) use of anticoagulants; Z79.84 Long term (current) use of oral hypoglycemic drugs
CPT/HCPCS: 36415; 71045; 80048; 81025; 84484; 85025; 87040; 87400; 96374; 96375; J0696; J1940; Z7502; Z7610

== ENCOUNTER 2018-07-09 14:02 | Emergency (ER) | payer OTHER ==
[~2018-07-09] VITALS: Ht 152.4 cm; Wt 86.4 kg
[~2018-07-09 14:02] MED LIST changes: -ACET325T33 PO; +ALBU8.5H8 INH; +ATOR20TA38 PO; -ATOR20TA65 PO; -BENZ-6 PO; -ERGO500013 PO; +GLIP10TA14 PO; -GLIP10TA3 PO; +LEVO500T48 PO; +METF100010 PO; -MTF1000T PO; +PRED20TA PO; -THIA50TA7 PO
[2018-07-09 14:20] VITALS: BP 113/67; PULSE 68; RESP 18; Ht 152.4 cm; Wt 86.4 kg
[2018-07-09] MEDS ORDERED: CEPH-443 PO (15:29)
[2018-07-09] MEDS ORDERED: MUPI22OI2 TOP (15:29)
--- NOTE | 2018-07-09 15:53 | ERD ---
ER Documentation Chief Complaint Chief Complaint lip swelling/pain HPI 58-year-old female presenting with lip swelling to the left upper lip. She states is been going on for the last 2-3 days. Has not been applying medication on the area. Patient has some pain. Medical history is hypertension. Denies fevers. Allergy to Bactrim and azithromycin. Social history denies ROS All systems reviewed and are negative except as per history of present illness. Medications Home Meds Active Scripts Mupirocin* (Bactroban*) 2% -22 Gram Oint...g., 1 APPLIC TOP BID for 7 Days, EA Prov:DEBRA CHENG PA-C 07/09/18 Cephalexin* (Keflex*) 500 Mg Capsule, 500 MG PO QID for 7 Days, CAP Prov:DEBRA CHENG PA-C 07/09/18 Levofloxacin* (Levaquin*) 500 Mg Tablet, 500 MG PO DAILY for 5 Days, TAB Prov:PEARL MENESES DO 07/06/18 Prednisone* (Prednisone*) 20 Mg Tab, 40 MG PO DAILY for 4 Days, TAB Prov:PEARL MENESES DO 07/06/18 Albuterol Sulfate* (Proair HFA*) 8.5 Gm Hfa.aer.ad, 2 PUFF INH Q4, #1 INHALER Prov:PEARL MENESES DO 07/06/18 Furosemide* (Furosemide*) 40 Mg Tablet, 40 MG PO DAILY for 15 Days, #15 TAB Prov:MILANA LI MD 05/28/18 Spironolactone* (Aldactone*) 25 Mg Tablet, 25 MG PO DAILY for 14 Days, #15 TAB Prov:MILANA LI MD 05/28/18 Carvedilol* (Carvedilol*) 12.5 Mg Tablet, 12.5 MG PO BID for 14 Days, #30 TAB Prov:MILANA LI MD 05/28/18 Apixaban* (Eliquis*) 5 Mg Tablet, 5 MG PO BID for 30 Days, #30 TAB 1 Refill Prov:MILANA LI MD 05/28/18 Reported Medications Lisinopril* (Lisinopril*) 10 Mg Tablet, 10 MG PO BID, #30 TAB 07/06/18 Metformin Hcl* (Metformin Hcl*) 1,000 Mg Tablet, 1000 MG PO WITH BREAKFAST DINNE, #60 TAB 07/06/18 Glipizide* (Glipizide*) 10 Mg Tablet, 10 MG PO AC BREAKFAST DINNER, TAB 07/06/18 Atorvastatin Calcium* (Atorvastatin Calcium*) 20 Mg Tablet, 20 MG PO QHS, #30 TAB 07/06/18 Discontinued Reported Medications Ergocalciferol (Vitamin D2) (VITAMIN D2) 50,000 Unit Capsule, 57392 UNIT PO QSUN, CAP 05/23/18 Lisinopril* (Lisinopril*) 10 Mg Tablet, 10 MG PO BID, #30 TAB 05/23/18 Atorvastatin Calcium (Atorvastatin Calcium) 20 Mg Tablet, 20 MG PO DAILY 06/27/15 Metformin* (Glucophage*) 1,000 Mg Tablet, 1000 MG PO BID, TAB 05/17/14 Glipizide* (Glucotrol*) 10 Mg Tablet, 10 MG PO BID 03/12/13 Discontinued Scripts Thiamine* (Thiamine*) 50 Mg Tablet, 100 MG PO DAILY for 30 Days, #30 TAB Prov:MILANA LI MD 05/28/18 Acetaminophen* (Tylenol*) 325 Mg Tablet, 650 MG PO Q6H PRN for .PAIN 1-3 OR TEMP for 5 Days, TAB Prov:MILANA LI MD 05/28/18 Benzonatate* (Tessalon Perle*) 100 Mg Capsule, 100 MG PO Q8H PRN for COUGH, #30 CAP Prov:MARTINA GTZ PA-C 03/10/18 Allergies Allergies: Coded Allergies: azithromycin (Unverified Allergy, Unknown, DRY MOUTH,HARD TO SWALLOW, 07/06/18) sulfamethoxazole (Unverified Allergy, Unknown, HARD TO SWALLOW, DRY MOUTH, 07/06/18) trimethoprim (Unverified Allergy, Unknown, HARD TO SWALLOW, DRY MOUTH, 07/06/18) PMhx/Soc History of Surgery: Yes (tubal ligation, appendectomy) Anesthesia Reaction: No Hx Neurological Disorder: No Hx Respiratory Disorders: No Hx Cardiac Disorders: No Hx Psychiatric Problems: No Hx Miscellaneous Medical Probl: Yes (DM ) Hx Alcohol Use: No Hx Substance Use: No Hx Tobacco Use: No FmHx Family History: No diabetes, No coronary disease, No other Physical Exam Vitals Vital Signs Date Temp Pulse Resp B/P (MAP) Pulse Ox O2 O2 Flow FiO2 Time Delivery Rate 07/09/18 98.4 68 18 113/67 96 14:20 (82) Physical Exam GENERAL: The patient is well-appearing, well-nourished, in no acute distress HEENT: Atraumatic. Conjunctivae are pink. Pupils equal, round, and reactive to light. There is no scleral icterus. Tympanic membranes clear bilaterally. Oropharynx clear. CHEST: Clear to auscultation bilaterally. There are no rales, wheezes or rhonchi. HEART: Regular rate and rhythm. No murmurs, clicks, rubs or gallops. No S3 or S4. NEUROLOGIC: Alert and oriented. Cranial nerves II through XII intact. Motor strength in all 4 extremities with 5 out of 5 strength. Sensation grossly intact. SKIN: erythema to left upper lip with honey comb skin changes. Procedures/MDM MDM: 58 yr old female with findings of impetigo. patient will be discharged with antibiotics and topical antibiotic cream. I have low suspicion for anaphylaxis. Patient has findings consistent with infection. Patient is discharged with strict ER precautions. All questions answered at discharge Departure Diagnosis: Primary Impression: Impetigo Condition: Stable Patient Instructions: Impetigo Referrals: [facility] YOU HAVE RECEIVED A MEDICAL SCREENING EXAM AND THE RESULTS INDICATE THAT YOU DO NOT HAVE A CONDITION THAT REQUIRES URGENT TREATMENT IN THE EMERGENCY DEPARTMENT. FURTHER EVALUATION AND TREATMENT OF YOUR CONDITION CAN WAIT UNTIL YOU ARE SEEN IN YOUR DOCTORS OFFICE WITHIN THE NEXT 1-2 DAYS. IT IS YOUR RESPONSIBILITY TO MAKE AN APPOINTMENT FOR FOLOW-UP CARE. IF YOU HAVE A PRIMARY DOCTOR --you should call your primary doctor and schedule an appointment IF YOU DO NOT HAVE A PRIMARY DOCTOR YOU CAN CALL OUR PHYSICIAN REFERRAL HOTLINE AT IF YOU CAN NOT AFFORD TO SEE A PHYSICIAN YOU CAN CHOSE FROM THE FOLLOWING [facility] [address] [facility] [address] [facility]. [facility] [address] [facility] [address] [facility]. [facility] [address] [facility]. [facility] [address] Additional Instructions: FOLLOW UP WITH YOUR PRIMARY CARE PHYSICIAN TOMORROW.Return to this facility if you are not improving as expected. DEBRA CHENG PA-C Jul 09, 2018 15:53
== END 2018-07-09 15:53 | disposition home or self-care (01) ==
LOC: FTE 14:02
DX: L01.00 Impetigo, unspecified (principal); I10 Essential (primary) hypertension; E11.9 Type 2 diabetes mellitus without complications; Z79.82 Long term (current) use of aspirin; Z79.84 Long term (current) use of oral hypoglycemic drugs
CPT/HCPCS: 99283

== ENCOUNTER 2018-08-03 11:00 | Emergency (ER) | payer OTHER ==
[~2018-08-03] VITALS: Wt 85.5 kg
[~2018-08-03 11:00] MED LIST changes: +CEPH-443 PO; +MUPI22OI2 TOP
[2018-08-03 11:08] VITALS: BP 115/76; PULSE 99; RESP 18
[2018-08-03] MEDS ORDERED: ACETAMINOPHEN 500 MG TAB PO STA (11:29)
[2018-08-03] MEDS ORDERED: LEVO750T25 PO (12:09)
--- NOTE | 2018-08-03 12:13 | ERD ---
ER Documentation Chief Complaint Chief Complaint cough x 4 days HPI 58-year-old female presents with 4 days of dry cough that is worse at night and keeps her up and makes it difficult for her to sleep. Unsure if she has had a fever. No hemoptysis or unplanned weight loss. No palpitations. No chest pain or shortness of breath. Tried [id number] medications with no relief. ROS All systems reviewed and are negative except as per history of present illness. Medications Home Meds Active Scripts Levofloxacin* (Levaquin*) 750 Mg Tablet, 750 MG PO DAILY for 5 Days, TAB Prov:KASSY CONTRERAS PA-C 08/03/18 Mupirocin* (Bactroban*) 2% -22 Gram Oint...g., 1 APPLIC TOP BID for 7 Days, EA Prov:DEBRA CHENG PA-C 07/09/18 Cephalexin* (Keflex*) 500 Mg Capsule, 500 MG PO QID for 7 Days, CAP Prov:DEBRA CHENG PA-C 07/09/18 Levofloxacin* (Levaquin*) 500 Mg Tablet, 500 MG PO DAILY for 5 Days, TAB Prov:PEARL MENESES DO 07/06/18 Prednisone* (Prednisone*) 20 Mg Tab, 40 MG PO DAILY for 4 Days, TAB Prov:PEARL MENESES DO 07/06/18 Albuterol Sulfate* (Proair HFA*) 8.5 Gm Hfa.aer.ad, 2 PUFF INH Q4, #1 INHALER Prov:PEARL MENESES DO 07/06/18 Furosemide* (Furosemide*) 40 Mg Tablet, 40 MG PO DAILY for 15 Days, #15 TAB Prov:MILANA LI MD 05/28/18 Spironolactone* (Aldactone*) 25 Mg Tablet, 25 MG PO DAILY for 14 Days, #15 TAB Prov:MILANA LI MD 05/28/18 Carvedilol* (Carvedilol*) 12.5 Mg Tablet, 12.5 MG PO BID for 14 Days, #30 TAB Prov:MILANA LI MD 05/28/18 Apixaban* (Eliquis*) 5 Mg Tablet, 5 MG PO BID for 30 Days, #30 TAB 1 Refill Prov:MILANA LI MD 05/28/18 Reported Medications Lisinopril* (Lisinopril*) 10 Mg Tablet, 10 MG PO BID, #30 TAB 07/06/18 Metformin Hcl* (Metformin Hcl*) 1,000 Mg Tablet, 1000 MG PO WITH BREAKFAST DINNE, #60 TAB 07/06/18 Glipizide* (Glipizide*) 10 Mg Tablet, 10 MG PO AC BREAKFAST DINNER, TAB 07/06/18 Atorvastatin Calcium* (Atorvastatin Calcium*) 20 Mg Tablet, 20 MG PO QHS, #30 TAB 07/06/18 Allergies Allergies: Coded Allergies: azithromycin (Unverified Allergy, Unknown, DRY MOUTH,HARD TO SWALLOW, 07/06/18) sulfamethoxazole (Unverified Allergy, Unknown, HARD TO SWALLOW, DRY MOUTH, 07/06/18) trimethoprim (Unverified Allergy, Unknown, HARD TO SWALLOW, DRY MOUTH, 07/06/18) PMhx/Soc History of Surgery: Yes (tubal ligation, appendectomy) Anesthesia Reaction: No Hx Neurological Disorder: No Hx Respiratory Disorders: No Hx Cardiac Disorders: Yes (htn) Hx Psychiatric Problems: No Hx Miscellaneous Medical Probl: Yes (DM ) Hx Alcohol Use: No Hx Substance Use: No Hx Tobacco Use: No FmHx Family History: diabetes Physical Exam Vitals Vital Signs Date Temp Pulse Resp B/P (MAP) Pulse Ox O2 O2 Flow FiO2 Time Delivery Rate 08/03/18 100.6 11:37 08/03/18 100.6 99 18 115/76 98 11:08 (89) Physical Exam INITIAL VITAL SIGNS: Reviewed by me GENERAL: Awake, alert and oriented x 4, well appearing, nontoxic, speaking in full sentences. No acute distress HEAD: Atraumatic NECK: Supple. No masses. Full range of motion. No meningismus. No midline tenderness. EYES: EOMI. PERRL. THROAT: No tonilar erythema or edema. No exudates. Uvula midline. No kissing tonsils. RESPIRATORY: Clear to auscultation bilaterally. Symmetric chest wall rise. No wheezing or rales. No accessory muscle use. CV: Regular rate and rhythm. No murmurs, rubs, or gallops. ABDOMEN: Soft, non-distended. Nontender. Negative Holly. Negative McBurneys point tenderness. No CVA tenderness bilaterally. No guarding. No rebound. Results 24 hrs Current Medications Medications Dose Sig/Dilip Start Time Status Last (Trade) Ordered Route PRN Stop Time Admin Dose Reason Admin 1,000 mg ONCE STAT 08/03/18 DC 08/03/18 Acetaminophen PO 11:29 08/03/18 11:37 (Tylenol 11:30 Tab) Procedures/MDM 58-year-old female is here with cough and congestion. In triage it was noted she had a fever however I rechecked it in the room and she was afebrile. Chest x-ray shows mild cardiomegaly without any infiltrate. She is discharged with antibiotics. Patient counseled regarding my diagnostic impression and care plan. Prior to discharge all questions answered. Pt agrees with treatment plan and understands strict return precautions. Pt is instructed to follow up with primary care provider within 24-48 hours. Precautionary instructions provided including instructions to return to the ER if not improving or for any worsening or changing symptoms or concerns. Departure Diagnosis: Primary Impression: Bronchitis Condition: Stable Patient Instructions: Bronchitis, Antiobiotic Treatment (Adult) Additional Instructions: Llame al doctor MAANA y nnamdi vikram ANTONIO PARA DENTRO DE 1-2 HERBERT.Dgale a la secretaria que nosotros le instruimos hacer esta antonio.Avise o llame si simmons condicin se empeora antes de la antonio. Regresa aqui si peor o no mejor. KASSY CONTRERAS PA-C August 03, 2018 12:13
== END 2018-08-03 12:23 | disposition home or self-care (01) ==
LOC: FTE 11:00
DX: J40 Bronchitis, not specified as acute or chronic (principal)
CPT/HCPCS: 71045; Z7502; Z7610

== ENCOUNTER 2018-08-25 14:01 | Emergency (ER) | payer OTHER ==
[~2018-08-25] VITALS: Ht 160 cm; Wt 90.0 kg
[~2018-08-25 14:01] MED LIST changes: +LEVO750T25 PO
[2018-08-25 14:06] VITALS: BP 130/74; PULSE 82; RESP 18; Ht 160 cm; Wt 90.0 kg
[2018-08-25] MEDS ORDERED: HYDROCODONE/APAP (5/325) TAB PO ONE (16:00)
[2018-08-25] MEDS ORDERED: HYDR-4011 PO (18:02)
--- NOTE | 2018-08-25 18:04 | ERD ---
ER Documentation Chief Complaint Chief Complaint right side back/rib pain s/p fall, ambulate w/steady gait. ROS All systems reviewed and are negative except as per history of present illness. Medications Home Meds Active Scripts Hydrocodone/Acetaminophen ([place] 5-325 Tablet) 1 Each Tablet, 1 EACH PO Q6H PRN for PAIN, #10 TAB Prov:SHWETADONNELL 08/25/18 Levofloxacin* (Levaquin*) 750 Mg Tablet, 750 MG PO DAILY for 5 Days, TAB Prov:KASSY CONTRERAS PA-C 08/03/18 Mupirocin* (Bactroban*) 2% -22 Gram Oint...g., 1 APPLIC TOP BID for 7 Days, EA Prov:DEBRA CHENG PA-C 07/09/18 Cephalexin* (Keflex*) 500 Mg Capsule, 500 MG PO QID for 7 Days, CAP Prov:DEBRA CHENG PA-C 07/09/18 Levofloxacin* (Levaquin*) 500 Mg Tablet, 500 MG PO DAILY for 5 Days, TAB Prov:PEARL MENESES DO 07/06/18 Prednisone* (Prednisone*) 20 Mg Tab, 40 MG PO DAILY for 4 Days, TAB Prov:PEARL MENESES DO 07/06/18 Albuterol Sulfate* (Proair HFA*) 8.5 Gm Hfa.aer.ad, 2 PUFF INH Q4, #1 INHALER Prov:PEARL MENESES DO 07/06/18 Furosemide* (Furosemide*) 40 Mg Tablet, 40 MG PO DAILY for 15 Days, #15 TAB Prov:MILANA LI MD 05/28/18 Spironolactone* (Aldactone*) 25 Mg Tablet, 25 MG PO DAILY for 14 Days, #15 TAB Prov:MILANA LI MD 05/28/18 Carvedilol* (Carvedilol*) 12.5 Mg Tablet, 12.5 MG PO BID for 14 Days, #30 TAB Prov:MILANA LI MD 05/28/18 Apixaban* (Eliquis*) 5 Mg Tablet, 5 MG PO BID for 30 Days, #30 TAB 1 Refill Prov:MILANA LI MD 05/28/18 Reported Medications Lisinopril* (Lisinopril*) 10 Mg Tablet, 10 MG PO BID, #30 TAB 07/06/18 Metformin Hcl* (Metformin Hcl*) 1,000 Mg Tablet, 1000 MG PO WITH BREAKFAST DINNE, #60 TAB 07/06/18 Glipizide* (Glipizide*) 10 Mg Tablet, 10 MG PO AC BREAKFAST DINNER, TAB 07/06/18 Atorvastatin Calcium* (Atorvastatin Calcium*) 20 Mg Tablet, 20 MG PO QHS, #30 TAB 07/06/18 Allergies Allergies: Coded Allergies: azithromycin (Unverified Allergy, Unknown, DRY MOUTH,HARD TO SWALLOW, 07/06/18) sulfamethoxazole (Unverified Allergy, Unknown, HARD TO SWALLOW, DRY MOUTH, 07/06/18) trimethoprim (Unverified Allergy, Unknown, HARD TO SWALLOW, DRY MOUTH, 07/06/18) PMhx/Soc History of Surgery: Yes (tubal ligation, appendectomy) Anesthesia Reaction: No Hx Neurological Disorder: No Hx Respiratory Disorders: No Hx Cardiac Disorders: Yes (htn) Hx Psychiatric Problems: No Hx Miscellaneous Medical Probl: Yes (DM ) Hx Alcohol Use: No Hx Substance Use: No Hx Tobacco Use: No Smoking Status: Never smoker Physical Exam Vitals Vital Signs Date Temp Pulse Resp B/P (MAP) Pulse Ox O2 O2 Flow FiO2 Time Delivery Rate 08/25/18 98.9 82 18 130/74 98 14:06 (92) Physical Exam Const: No acute distress Head: Atraumatic Eyes: Normal Conjunctiva ENT: Normal External Ears, Nose and Mouth. Neck: Full range of motion. No meningismus. Resp: Clear to auscultation bilaterally Cardio: Regular rate and rhythm, no murmurs Abd: Soft, non tender, non distended. Normal bowel sounds Skin: No petechiae or rashes Back: No midline or flank tenderness Ext: No cyanosis, or edema Neur: Awake and alert Psych: Normal Mood and Affect Results 24 hrs Current Medications Medications Dose Sig/Dilip Start Time Status Last (Trade) Ordered Route PRN Stop Time Admin Dose Reason Admin 1 tab ONCE ONCE 08/25/18 DC 08/25/18 Acetaminophen PO 16:00 15:57 / 08/25/18 16:01 Hydrocodone Bitart ([place] (5/325)) Departure Diagnosis: Primary Impression: Rib fracture Encounter type: initial encounter Rib fracture type: single rib Fracture type: closed Laterality: right Qualified Codes: S22.31XA - Fracture of one rib, right side, initial encounter for closed fracture Condition: Fair Patient Instructions: Rib Fracture (Broken Rib) Referrals: [facility] YOU HAVE RECEIVED A MEDICAL SCREENING EXAM AND THE RESULTS INDICATE THAT YOU DO NOT HAVE A CONDITION THAT REQUIRES URGENT TREATMENT IN THE EMERGENCY DEPARTMENT. FURTHER EVALUATION AND TREATMENT OF YOUR CONDITION CAN WAIT UNTIL YOU ARE SEEN IN YOUR DOCTORS OFFICE WITHIN THE NEXT 1-2 DAYS. IT IS YOUR RESPONSIBILITY TO MAKE AN APPOINTMENT FOR FOLOW-UP CARE. IF YOU HAVE A PRIMARY DOCTOR --you should call your primary doctor and schedule an appointment IF YOU DO NOT HAVE A PRIMARY DOCTOR YOU CAN CALL OUR PHYSICIAN REFERRAL HOTLINE AT IF YOU CAN NOT AFFORD TO SEE A PHYSICIAN YOU CAN CHOSE FROM THE FOLLOWING [facility] [address] [facility]. [facility] [address] [facility] [facility] [address] [facility] [facility] [address] [facility]. [facility] [address] [facility]. [facility]. [address] Additional Instructions: Call your primary care doctor TOMORROW for an appointment during the next 1-2 days.See the doctor sooner or return here if your condition worsens before your appointment time. DONNELL ROCK DO August 25, 2018 18:04
== END 2018-08-25 18:15 | disposition home or self-care (01) ==
LOC: FTE 14:01
DX: S22.31XA Fracture of one rib, right side, initial encounter for closed fracture (principal); I10 Essential (primary) hypertension; E11.9 Type 2 diabetes mellitus without complications; W18.39XA Other fall on same level, initial encounter; Y92.9 Unspecified place or not applicable; Z79.84 Long term (current) use of oral hypoglycemic drugs
CPT/HCPCS: 71250; Z7502; Z7610

== ENCOUNTER 2018-08-27 04:19 | Emergency (ER) | payer OTHER ==
[~2018-08-27] VITALS: Wt 92.0 kg
[~2018-08-27 04:19] MED LIST changes: +HYDR-4011 PO
[2018-08-27 04:26] VITALS: BP 133/79; PULSE 76; RESP 18
[2018-08-27] MEDS ORDERED: ACET500C5 PO (07:13)
--- NOTE | 2018-08-27 15:24 | ERD ---
ER Documentation Chief Complaint Chief Complaint STATES SHE FEELS JITTERY WITH DRY MOUTH AFTER TAKING A [place] HPI 58-year-old female patient with a past medical history of diabetes, asthma presents the ED complaining of having dry mouth after taking [place], as well as a chest pressure-like sensation. States that she feels also jittery and this has been occurring for the last 15 minutes. Reports that she normally takes furosemide, glipizide, carvedilol, metformin Eliquis. She was recently diagnosed with dilated cardiomyopathy in May 2018. Patient denies any cu rrent chest pain. Denies any shortness of breath, nausea, vomiting, diarrhea, dyspnea on exertion, orthopnea, leg swelling, dysuria, urgency, frequency, hematuria, abdominal pain, neck stiffness. ROS All systems reviewed and are negative except as per history of present illness. Medications Home Meds Active Scripts Acetaminophen* (Tylophen*) 500 Mg Capsule, 1 CAP PO Q6H PRN for PAIN AND OR ELEVATED TEMP, #20 CAP Prov:PAULINO WARD PA-C 08/27/18 Hydrocodone/Acetaminophen ([place] 5-325 Tablet) 1 Each Tablet, 1 EACH PO Q6H PRN for PAIN, #10 TAB Prov:DONNELL ROCK DO 08/25/18 Levofloxacin* (Levaquin*) 750 Mg Tablet, 750 MG PO DAILY for 5 Days, TAB Prov:KASSY CONTRERAS PA-C 08/03/18 Mupirocin* (Bactroban*) 2% -22 Gram Oint...g., 1 APPLIC TOP BID for 7 Days, EA Prov:DEBRA CHENG PA-C 07/09/18 Cephalexin* (Keflex*) 500 Mg Capsule, 500 MG PO QID for 7 Days, CAP Prov:DEBRA CHENG PA-C 07/09/18 Levofloxacin* (Levaquin*) 500 Mg Tablet, 500 MG PO DAILY for 5 Days, TAB Prov:PEARL MENESES DO 07/06/18 Prednisone* (Prednisone*) 20 Mg Tab, 40 MG PO DAILY for 4 Days, TAB Prov:PEARL MENESES DO 07/06/18 Albuterol Sulfate* (Proair HFA*) 8.5 Gm Hfa.aer.ad, 2 PUFF INH Q4, #1 INHALER Prov:PEARL MENESES 07/06/18 Furosemide* (Furosemide*) 40 Mg Tablet, 40 MG PO DAILY for 15 Days, #15 TAB Prov:MILANA LI MD 05/28/18 Spironolactone* (Aldactone*) 25 Mg Tablet, 25 MG PO DAILY for 14 Days, #15 TAB Prov:MILANA LI MD 05/28/18 Carvedilol* (Carvedilol*) 12.5 Mg Tablet, 12.5 MG PO BID for 14 Days, #30 TAB Prov:MILANA LI MD 05/28/18 Apixaban* (Eliquis*) 5 Mg Tablet, 5 MG PO BID for 30 Days, #30 TAB 1 Refill Prov:MILANA LI MD 05/28/18 Reported Medications Lisinopril* (Lisinopril*) 10 Mg Tablet, 10 MG PO BID, #30 TAB 07/06/18 Metformin Hcl* (Metformin Hcl*) 1,000 Mg Tablet, 1000 MG PO WITH BREAKFAST DINNE, #60 TAB 07/06/18 Glipizide* (Glipizide*) 10 Mg Tablet, 10 MG PO AC BREAKFAST DINNER, TAB 07/06/18 Atorvastatin Calcium* (Atorvastatin Calcium*) 20 Mg Tablet, 20 MG PO QHS, #30 TAB 07/06/18 Allergies Allergies: Coded Allergies: azithromycin (Unverified Allergy, Unknown, DRY MOUTH,HARD TO SWALLOW, 07/06/18) sulfamethoxazole (Unverified Allergy, Unknown, HARD TO SWALLOW, DRY MOUTH, 07/06/18) trimethoprim (Unverified Allergy, Unknown, HARD TO SWALLOW, DRY MOUTH, 07/06/18) PMhx/Soc History of Surgery: Yes (tubal ligation, appendectomy) Anesthesia Reaction: No Hx Neurological Disorder: No Hx Respiratory Disorders: No Hx Cardiac Disorders: Yes (htn) Hx Psychiatric Problems: No Hx Miscellaneous Medical Probl: Yes (DM ) Hx Alcohol Use: No Hx Substance Use: No Hx Tobacco Use: No Smoking Status: Never smoker FmHx Family History: No diabetes, No coronary disease Physical Exam Vitals Vital Signs Date Temp Pulse Resp B/P (MAP) Pulse Ox O2 O2 Flow FiO2 Time Delivery Rate 08/27/18 97.2 76 18 133/79 96 04:26 (97) Physical Exam Const: Puo-dec-vrwsminqx, well-nourished. In no acute distress. Head: Atraumatic, normocephalic Eyes: Normal Conjunctiva without injection. No purulent discharge. ENT: Normal external ear, nose. Moist oropharynx without tonsillar exudates. Non-erythematous pharynx. Uvula midline. No drooling. No trismus. Neck: No cervical midline tenderness. Full range of motion. No meningismus. No cervical lymphadenopathy. No JVD. Resp: Clear to auscultation bilaterally. No wheezing, rhonchi, rales, or crackles. No accessory muscle use. No retractions. Cardio: Regular rate and rhythm. No murmurs, rubs or gallops. Abd: Soft, nontender, non distended. Normal bowel sounds. No palpable masses. No rebound tenderness. No guarding. Negative McBurney's point. Negative psoas sign. Negative obturator sign. Skin: No petechiae or rashes Back: No midline tenderness. No CVA tenderness. Ext: No cyanosis, or edema. Neur: Awake and alert. Normal gait. Normal coordination. Psych: Normal Mood and Affect Results 24 hrs Laboratory Tests Test 08/27/18 06:45 Bedside Glucose 134 mg/dL Procedures/MDM 58-year-old female patient with past medical history of diabetes, asthma presents the ED complaining of feeling jittery, having a dry mouth, chest p ressure after taking [place] last night. Patient is afebrile and nontoxic- appearing. Patient was recently diagnosed with 1/8 rib fracture due to a chest contusion, on August 22, 2018. Discussed with my supervising physician, Dr. Serrano, we both agreed with the management discharge plan. EKG, Accu-Chek was ordered to further evaluate patient. Accu-Chek was 134. EKG reviewed and interpreted by Dr. Serrano Rate/Rhythm: [68 bpm, Normal Sinus Rhythm] No ectopy, no ST elevations, normal axis. QRS, ST, T-waves: [No changes consistent w/ acute ischemia] Impression: [No evidence of ischemia or arrhythmia] Low suspicion for acute myocardial infarction, pneumothorax, pneumonia, cardiac tamponade, Mipwf-Bdlxplikg-Obxrs Syndrome, Brugada Syndrome, pulmonary embolism, AAA, aortic dissection, thoracic aortic dissection, endocarditis, myocarditis, pericarditis, cocaine-related ischemia, Boerhaave's syndrome, cardiac dysrhythmias,meningitis, intracranial bleed, seizure, stroke, TIA or other emergent conditions. Diagnosis: Dry Mouth, Rib Pain Discharge medications: Tylenol Follow up with primary care physician in 1-2 days. Instructed patient to return to the ED sooner for any worsening symptoms. Patient's questions were answered. Patient is hemodynamically stable. Patient understood and agreed with discharge plan. Patient discharged stable. Disclaimer: Inadvertent spelling and grammatical errors are likely due to EHR/dictation software use and do not reflect on the overall quality of patient care. Also, please note that the electronic time recorded on this note does not necessarily reflect the actual time of the patient encounter. Departure Diagnosis: Primary Impression: Dry mouth Additional Impression: Rib pain Condition: Stable Patient Instructions: Diabetes: Living Your Life, Fracture, Rib, Diabetic Diet Referrals: [facility] YOU HAVE RECEIVED A MEDICAL SCREENING EXAM AND THE RESULTS INDICATE THAT YOU DO NOT HAVE A CONDITION THAT REQUIRES URGENT TREATMENT IN THE EMERGENCY DEPARTMENT. FURTHER EVALUATION AND TREATMENT OF YOUR CONDITION CAN WAIT UNTIL YOU ARE SEEN IN YOUR DOCTORS OFFICE WITHIN THE NEXT 1-2 DAYS. IT IS YOUR RESPONSIBILITY TO MAKE AN APPOINTMENT FOR FOLOW-UP CARE. IF YOU HAVE A PRIMARY DOCTOR --you should call your primary doctor and schedule an appointment IF YOU DO NOT HAVE A PRIMARY DOCTOR YOU CAN CALL OUR PHYSICIAN REFERRAL HOTLINE AT IF YOU CAN NOT AFFORD TO SEE A PHYSICIAN YOU CAN CHOSE FROM THE FOLLOWING [facility] CLINICS [facility] [address] [facility]. [facility] [address] [address] [facility]. [facility] [address] [facility]. [facility] [address] [facility]. [facility]. [address] [facility]. [facility] YOU HAVE RECEIVED A MEDICAL SCREENING EXAM AND THE RESULTS INDICATE THAT YOU DO NOT HAVE A CONDITION THAT REQUIRES URGENT TREATMENT IN THE EMERGENCY DEPARTMENT. FURTHER EVALUATION AND TREATMENT OF YOUR CONDITION CAN WAIT UNTIL YOU ARE SEEN IN YOUR DOCTORS OFFICE WITHIN THE NEXT 1-2 DAYS. IT IS YOUR RESPONSIBILITY TO MAKE AN APPOINTMENT FOR FOLOW-UP CARE. IF YOU HAVE A PRIMARY DOCTOR --you should call your primary doctor and schedule and appointment IF YOU DO NOT HAVE A PRIMARY DOCTOR YOU CAN CALL OUR PHYSICIAN REFERRAL HOTLINE AT . IF YOU CAN NOT AFFORD TO SEE A PHYSICIAN YOU CAN CHOSE FROM THE FOLLOWING [facility] INSTITUTIONS: [facility] [address] [place] [address] [facility] [address] [place] [address] [facility] [address] [place] [address] [facility]CIAL[facility] Additional Instructions: Llame al doctor MAANA y nnamdi vikram ANTONIO PARA DENTRO DE 2-3 HERBERT.Dgale a la secretaria que nosotros le instruimos hacer esta antonio.Avise o llame si simmons condicin se empeora antes de la antonio. Regresa aqui si peor o no mejor. PAULINO WARD PA-C August 27, 2018 15:24
== END 2018-08-27 07:24 | disposition home or self-care (01) ==
LOC: FTE 04:19
DX: R68.2 Dry mouth, unspecified (principal); R07.81 Pleurodynia; E11.9 Type 2 diabetes mellitus without complications; J45.909 Unspecified asthma, uncomplicated; Z79.84 Long term (current) use of oral hypoglycemic drugs
CPT/HCPCS: 82962; 93005; Z7502

== ENCOUNTER 2018-10-11 02:47 | Emergency (ER) | payer OTHER ==
[~2018-10-11] VITALS: Ht 157.5 cm; Wt 92.8 kg
[~2018-10-11 02:47] MED LIST changes: +ACET500C5 PO
[2018-10-11 02:53] VITALS: BP 141/78; PULSE 86; RESP 18; Ht 157.5 cm; Wt 92.8 kg
[2018-10-11] MEDS ORDERED: IPRATROPIUM (NEB) 0.5 MG/2.5 ML AMP NEB STA (06:31)
[2018-10-11] MEDS ORDERED: METHYLPREDNISOLONE 125 MG INJ IM STA (06:31)
[2018-10-11] MEDS ORDERED: ALBUTEROL 0.083% (NEB) 2.5 MG/3 ML AMP NEB STA (06:31)
--- NOTE | 2018-10-11 06:37 | ERD ---
ER Documentation Chief Complaint Chief Complaint sob/asthma x 2 guo HPI Patient is 58 years old female with multiple past medical history presenting to the clinic for asthma exacerbation. Patient reports of difficulty breathing and cough without sputum production X 2 days. Patient denies wheezing, chest pain, fever, chills, night sweats, coryza, throat pain, ear pain. She admits to taking her Ventolin HF a without resolution of symptoms. She is also requesting refills for furosemide 40mg. ROS All systems reviewed and are negative except as per history of present illness. Medications Home Meds Active Scripts Furosemide* (Furosemide*) 40 Mg Tablet, 40 MG PO DAILY for 30 Days, #30 TAB Prov:ANDREA BERGER PA-C 10/11/18 Nebulizer (Compact Compressor Nebulizer) 1 Each Each, EACH , #1 Prov:ANDREA BERGER PA-C 10/11/18 Albuterol Sulfate* (Albuterol Sulfate* Neb) 0.083%-3 Ml Neb, 2.5 MG NEB Q4 PRN for SHORTNESS OF BREATH, #30 EA Prov:ANDREA BERGER PA-C 10/11/18 Methylprednisolone* (Medrol* DOSE PACK) 4 Mg/Dose-Pack Tab.ds.pk, 4 MG PO . DIRECTED for 5 Days, PACKET Prov:ANDREA BERGER PA-C 10/11/18 Acetaminophen* (Tylophen*) 500 Mg Capsule, 1 CAP PO Q6H PRN for PAIN AND OR ELEVATED TEMP, #20 CAP Prov:PAULINO WARD PA-C 08/27/18 Hydrocodone/Acetaminophen ([place] 5-325 Tablet) 1 Each Tablet, 1 EACH PO Q6H PRN for PAIN, #10 TAB Prov:DONNELL ROCK DO 08/25/18 Levofloxacin* (Levaquin*) 750 Mg Tablet, 750 MG PO DAILY for 5 Days, TAB Prov:KASSY CONTRERAS PA-C 08/03/18 Mupirocin* (Bactroban*) 2% -22 Gram Oint...g., 1 APPLIC TOP BID for 7 Days, EA Prov:DEBRA CHENG PA-C 07/09/18 Cephalexin* (Keflex*) 500 Mg Capsule, 500 MG PO QID for 7 Days, CAP Prov:DEBRA CHENG PA-C 07/09/18 Levofloxacin* (Levaquin*) 500 Mg Tablet, 500 MG PO DAILY for 5 Days, TAB Prov:PEARL MENESESMilton DO 07/06/18 Prednisone* (Prednisone*) 20 Mg Tab, 40 MG PO DAILY for 4 Days, TAB Prov:PEARL MENESES. DO 07/06/18 Albuterol Sulfate* (Proair HFA*) 8.5 Gm Hfa.aer.ad, 2 PUFF INH Q4, #1 INHALER Prov:PEARL MENESESMilton DO 07/06/18 Furosemide* (Furosemide*) 40 Mg Tablet, 40 MG PO DAILY for 15 Days, #15 TAB Prov:MILANA LI MD 05/28/18 Spironolactone* (Aldactone*) 25 Mg Tablet, 25 MG PO DAILY for 14 Days, #15 TAB Prov:MILANA LI MD 05/28/18 Carvedilol* (Carvedilol*) 12.5 Mg Tablet, 12.5 MG PO BID for 14 Days, #30 TAB Prov:MILANA LI MD 05/28/18 Apixaban* (Eliquis*) 5 Mg Tablet, 5 MG PO BID for 30 Days, #30 TAB 1 Refill Prov:MILANA LI MD 05/28/18 Reported Medications Lisinopril* (Lisinopril*) 10 Mg Tablet, 10 MG PO BID, #30 TAB 07/06/18 Metformin Hcl* (Metformin Hcl*) 1,000 Mg Tablet, 1000 MG PO WITH BREAKFAST DINNE, #60 TAB 07/06/18 Glipizide* (Glipizide*) 10 Mg Tablet, 10 MG PO AC BREAKFAST DINNER, TAB 07/06/18 Atorvastatin Calcium* (Atorvastatin Calcium*) 20 Mg Tablet, 20 MG PO QHS, #30 TAB 07/06/18 Allergies Allergies: Coded Allergies: azithromycin (Unverified Allergy, Unknown, DRY MOUTH,HARD TO SWALLOW, 07/06/18) sulfamethoxazole (Unverified Allergy, Unknown, HARD TO SWALLOW, DRY MOUTH, 07/06/18) trimethoprim (Unverified Allergy, Unknown, HARD TO SWALLOW, DRY MOUTH, 07/06/18) PMhx/Soc History of Surgery: Yes (tubal ligation, appendectomy) Anesthesia Reaction: No Hx Neurological Disorder: No Hx Respiratory Disorders: No Hx Cardiac Disorders: Yes (htn) Hx Psychiatric Problems: No Hx Miscellaneous Medical Probl: Yes (DM ) Hx Alcohol Use: No Hx Substance Use: No Hx Tobacco Use: No Smoking Status: Never smoker FmHx Family History: No diabetes, No coronary disease, No other Physical Exam Vitals Vital Signs Date Temp Pulse Resp B/P (MAP) Pulse Ox O2 O2 Flow FiO2 Time Delivery Rate 10/11/18 89 20 100 Room Air 07:23 10/11/18 89 20 95 21 06:53 10/11/18 98.2 86 18 141/78 98 02:53 (99) Physical Exam Const: No acute distress Head: Atraumatic Eyes: Normal Conjunctiva ENT: Normal External Ears, Nose and Mouth. Neck: Full range of motion. No meningismus. Resp: Clear to auscultation bilaterally. No rales, rhonchi, wheezing. No signs of accessory muscle usage noted. Cardio: Regular rate and rhythm, no murmurs Neur: Awake and alert Psych: Normal Mood and Affect Results 24 hrs Current Medications Medications Dose Sig/Dilip Start Time Status Last (Trade) Ordered Route PRN Stop Time Admin Dose Reason Admin Albuterol 2.5 mg ONCE STAT 10/11/18 DC 10/11/18 (Proventil NEB 06:31 06:53 0.083% (Neb)) 10/11/18 06:33 Ipratropium 0.5 mg ONCE STAT 10/11/18 DC 10/11/18 Opal NEB 06:31 06:53 (Atrovent 10/11/18 06:33 0.02% (Neb)) 125 mg ONCE STAT 10/11/18 DC 10/11/18 Methylprednis IM 06:31 06:38 olone Sodium 10/11/18 06:33 Succinate (Solu-Medrol) Procedures/MDM Patient was seen and evaluated for possible without complications. Patient was given nebulizer and Solu-Medrol IM in ED with significant improvement of symptoms. Pulmonary exam post treatment in ED is unremarkable. No suspicion of pneumonia or URI due to an unremarkable lung exam. Patient is stable ready for discharge. Follow-up with PCP. Patient will be discharged with Medrol Dosepak, nebulizer, and furosemide 40 mg. Departure Diagnosis: Primary Impression: Asthma Asthma severity: mild Asthma persistence: intermittent Asthma complication type: uncomplicated Qualified Codes: J45.20 - Mild intermittent asthma, uncomplicated Patient Instructions: Asthma Referrals: [facility] Additional Instructions: Paciente aconseja volver a Departamento de urgencias inmediatamente para sntomas nuevos o que empeoran . Paciente aconseja posteriores con el PCP en 2-3 manzano . Paciente verbaliza la comprehensin y est de acuerdo con el tratamiento y el curso de accin. Si el paciente no tiene ninguna de atencin primaria pueden seguir con [facility] [address] [place] [address] o [facility] + [address] [address] ANDREA BREGER PA-C Oct 11, 2018 06:36
[2018-10-11] MEDS ORDERED: NEBU1KIT3 MC (06:38)
[2018-10-11] MEDS ORDERED: ALBU2.5V3 NEB (06:38)
[2018-10-11] MEDS ORDERED: FURO40TA4 PO (06:38)
[2018-10-11] MEDS ORDERED: MED4DP PO (06:38)
== END 2018-10-11 08:20 | disposition home or self-care (01) ==
LOC: FTE 02:47
DX: J45.20 Mild intermittent asthma, uncomplicated (principal); I10 Essential (primary) hypertension; E11.9 Type 2 diabetes mellitus without complications; Z79.01 Long term (current) use of anticoagulants; Z79.84 Long term (current) use of oral hypoglycemic drugs
CPT/HCPCS: 94664; J2930; Z7610; 96372

== ENCOUNTER 2018-11-12 20:33 | Inpatient (IN) | payer OTHER ==
[~2018-11-12] VITALS: Ht 165.1 cm; Wt 91.6 kg
[~2018-11-12 20:33] MED LIST changes: +ALBU2.5V3 NEB; +MED4DP PO; +MULTI PO; +NEBU1KIT3 MC
[2018-11-12] MEDS ORDERED: ASPIRIN 81 MG TAB PO ONE (21:30)
[2018-11-12] MEDS ORDERED: FUROSEMIDE 40 MG INJ IV ONE (21:30)
[2018-11-12] MEDS ORDERED: NITROGLYCERIN (SL) 0.4 MG TAB SL ONE (21:30)
[2018-11-12] MEDS ORDERED: ENALAPRILAT 1.25 MG INJ IV ONE (22:30)
[2018-11-13] VITALS (7 sets, daily range): BP systolic 94–125; BP diastolic 63–78; PULSE 80–111; RESP 18–20; Ht 165.1 cm; Wt 91.6 kg
[2018-11-13] MEDS ORDERED: ONDANSETRON 4 MG INJ IV PRN (06:00)
[2018-11-13] MEDS ORDERED: ENOXAPARIN 100 MG/ML SYG SC ONE (06:00)
[2018-11-13] MEDS ORDERED: NACL 0.9% 3 ML SYG IV SCH (06:00)
[2018-11-13] MEDS ORDERED: ALBUTEROL/IPRATROPIUM (NEB) 3 ML AMP HHN PRN (06:00)
[2018-11-13] MEDS ORDERED: NITROGLYCERIN (SL) 0.4 MG TAB SL PRN (06:00)
[2018-11-13] MEDS ORDERED: ACETAMINOPHEN 325 MG TAB PO PRN (06:00)
[2018-11-13] MEDS ORDERED: INSULIN GLARGINE [LANTus] (100 UNITS/ML) SYG SC SCH (06:31)
[2018-11-13] MEDS: INSULIN ASPART [NOVOLOG] 3 ML PEN SC SCH ×4 (07:58→20:12)
[2018-11-13] MEDS ORDERED: FUROSEMIDE 40 MG TAB PO SCH (09:00)
[2018-11-13] MEDS ORDERED: MULTIVITAMINS THERAPEUTIC TAB PO SCH (09:00)
[2018-11-13] MEDS: ALBUTEROL HFA 8 GM INHALER INH SCH ×4 (09:16→21:00)
[2018-11-13] MEDS ORDERED: INSULIN GLARGINE [LANTus] (100 UNITS/ML) SYG SC ONE (12:00)
[2018-11-13] MEDS ORDERED: HEPARIN 1000 UNITS/ML 10 ML INJ IV ONE (12:00)
[2018-11-13] MEDS ORDERED: HEPARIN 1000 UNITS/ML 10 ML INJ IV PRN (12:00)
[2018-11-13] MEDS ORDERED: HEPARIN 25000 UNITS/250 ML 250 ML IV SCH (12:00)
[2018-11-13] MEDS ORDERED: SOD CHLORIDE 0.9% 100 ML ONE (12:59)
[2018-11-13] MEDS ORDERED: IOHEXOL 100 ML ONE (12:59)
[2018-11-13] MEDS ORDERED: ASPIRIN (EC) 81 MG TAB PO SCH (16:30)
[2018-11-13] MEDS ORDERED: FUROSEMIDE 40 MG INJ IV SCH (18:00)
[2018-11-13] MEDS ORDERED: ATORVASTATIN 40 MG TAB PO SCH (21:00)
[2018-11-14] MEDS ORDERED: ACCU-CHEK XX SCH (02:00)
[2018-11-14] MEDS ORDERED: INSULIN GLARGINE [LANTus] (100 UNITS/ML) SYG SC SCH ×2 (08:00)
== END 2018-11-14 00:05 | disposition short-term general hospital (02) | DRG 280 ==
LOC: E/R 20:33 → 6WM 22:31
PROVIDERS: ADMIT Internal Medicine; ATTEND Internal Medicine
DX: I21.4 Non-ST elevation (NSTEMI) myocardial infarction (principal); I50.33 Acute on chronic diastolic (congestive) heart failure; I42.0 Dilated cardiomyopathy; I11.0 Hypertensive heart disease with heart failure; E11.65 Type 2 diabetes mellitus with hyperglycemia; J45.909 Unspecified asthma, uncomplicated; Z79.4 Long term (current) use of insulin; Z91.14 Patient's other noncompliance with medication regimen; I48.0 Paroxysmal atrial fibrillation
CPT/HCPCS: 36415; 71045; 71275; 80053; 82550; 82553; 82962; 83690; 83735; 83880; 84484; 85025; 85610; 85730; 93005; 94660; 96374; 96375; J1644; J1650; J1815; J1940; Q9967